=== PATIENT | female | born 1995 | race Caucasian/White ===

== ENCOUNTER 2017-10-03 23:21 | Inpatient (IN) | payer OTHER ==
[2017-10-04] MEDS ORDERED: Misoprostol 25 MCG (1/4 of 100 MCG) Tab VAG PRN (00:28)
[2017-10-04] MEDS ORDERED: Water For Irrigation,Sterile 1,000 ML Container IRR PRN (00:28)
[2017-10-04] MEDS ORDERED: Sodium Chloride 0.9% 10 ML Syringe FLUSH PRN (00:28)
[2017-10-04] MEDS ORDERED: Methylergonovine 0.2 MG/1 ML Amp IM PRN (00:28)
[2017-10-04] MEDS ORDERED: Misoprostol 200 MCG Tab PO PRN (00:28)
[2017-10-04] MEDS ORDERED: Butorphanol 1 MG/ML SDV IVPUSH PRN (00:28)
[2017-10-04] MEDS ORDERED: Nalbuphine 10 MG/1 ML Vial IVPUSH PRN ×3 (00:28→18:22)
[2017-10-04] MEDS ORDERED: Carboprost Tromethamine 250 MCG/1 ML Amp IM PRN (00:28)
[2017-10-04] MEDS ORDERED: Terbutaline 1 MG/ML SDV SUBCUT PRN (00:28)
[2017-10-04] MEDS ORDERED: Sodium Chloride 0.9% 2.5 ML Syringe FLUSH PRN (00:28)
[2017-10-04] MEDS ORDERED: Lidocaine 1% 50 ML MDV INJECT PRN (00:28)
[2017-10-04] MEDS ORDERED: Oxytocin/0.9 % Sodium Chloride 30 UNIT/500 ML BAG IV SCH ×3 (00:30→12:45)
[2017-10-04] MEDS ORDERED: Misoprostol 25 MCG (1/4 of 100 MCG) Tab VAG SCH (00:30)
[2017-10-04] MEDS ORDERED: Lactated Ringers 1,000 ML IV SCH ×2 (00:30→12:45)
[2017-10-04] MEDS: Misoprostol 25 MCG (1/4 of 100 MCG) Tab PO SCH (01:06)
[2017-10-04] MEDS ORDERED: fentaNYL 100 MCG/2 ML SDV ONE (07:52)
[2017-10-04] MEDS ORDERED: Ropivacaine 100 ML ONE (07:53)
--- NOTE | 2017-10-04 09:03 | PCM.LDHP ---
L&D History of Present Illness - General Date of Service: 10/04/17 Admit Problem/Dx: Patient Status Order with Admit Dx/Problem 10/04/17 00:28 Patient Status [ADT] Routine Admission Diagnosis/Problem Admission Diagnosis/Problem Source of Information: Patient History Limitations: Reports: No Limitations - History of Present Illness Pain Score: 2 Improves with: Reports: None Worsens with: Reports: None Associated Symptoms: Reports: N - Related Data Allergies/Adverse Reactions: Allergies Allergy/AdvReac Type Severity Reaction Status Date / Time No Known Allergies Allergy Verified 10/03/17 23:47 Past Medical History Gastrointestinal History: Reports: GERD Genitourinary History: Reports: Renal Calculus, UTI, Recurrent Psychiatric History: Reports: Depression Hematologic History: Reports: Anemia Dermatologic History: Reports: Other (See Below) Other Dermatologic History: Maryellen disease Social & Family History - Family History Cardiac: Reports: Heart Failure OBGYN: Reports: Oncologic: Reports: Lung - Tobacco Use Smoking Status *Q: Never Smoker - Caffeine Use Caffeine Use: Reports: Energy Drinks, Soda - Recreational Drug Use Recreational Drug Use: Yes Recreational Drug Type: Reports: Marijuana/Hashish H&P Review of Systems - Review of Systems: Review Of Systems: See Below General: Reports: No Symptoms HEENT: Reports: No Symptoms Pulmonary: Reports: No Symptoms Cardiovascular: Reports: No Symptoms Gastrointestinal: Reports: No Symptoms Genitourinary: Reports: No Symptoms 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: Reports: No Symptoms Skin: Reports: No Symptoms Psychiatric: Reports: No Symptoms Neurological: Reports: No Symptoms Hematologic/Lymphatic: Reports: No Symptoms Immunologic: Reports: No Symptoms L&D Exam - Exam Exam: See Below - Vital Signs Weight: 86.183 kg - OB Specific Fundal Height In cm: 36 Contraction Intensity: Moderate Movement: Active Heart Tones: Present Presentation: Vertex - Sylvester Score Sylvester Score Cervix Position: Anterior Sylvester Score Consistency: Soft Sylvester Score Effacement: >80% Sylvester Score Dilation: 3-4 cm Sylvester Score 's Station: -2 Sylvester Score Total: 10 - Exam General: Alert, Oriented HEENT: PERRLA, Conjunctiva Clear, EACs Clear, EOMI, Hearing Intact, Mucosa Moist & [place], Nares Patent, Normal Nasal Septum, Posterior Pharynx Clear, TMs Clear Neck: Supple, Trachea Midline Lungs: Clear to Auscultation, Normal Respiratory Effort Cardiovascular: Regular Rate, Regular Rhythm GI/Abdominal Exam: Normal Bowel Sounds, Soft, Non-Tender, No Organomegaly, No Distention, No Abnormal Bruit, No Mass, Pelvis Stable Rectal Exam: Normal Exam, Normal Rectal Tone Genitourinary: Normal external exam, Normal bimanual exam, Normal speculum exam Back Exam: Normal Inspection, Full Range of Motion Extremities: Normal Inspection, Normal Range of Motion, Non-Tender, No Pedal Edema, Normal Capillary Refill Skin: Warm, Dry, Intact Neurological: Cranial Nerves Intact, Reflexes Equal Bilateral Psychiatric: Alert, Normal Affect, Normal Mood - Patient Data Lab Results Last 24 hrs: Laboratory Results - last 24 hr 10/03/17 10/04/17 10/04/17 Range/Units 23:45 00:55 00:55 WBC 11.01 H (4.0-11.0) K/uL RBC 3.87 L (4.30-5.90) M/uL Hgb 11.4 L (12.0-16.0) g/dL Hct 34.2 L (36.0-46.0) % MCV 88.4 (80.0-98.0) fL MCH 29.5 (27.0-32.0) pg MCHC 33.3 (31.0-37.0) g/dL RDW Std Deviation 43.7 (28.0-62.0) fl RDW Coeff of Jamey 14 (11.0-15.0) % Plt Count 199 (150-400) K/uL MPV 12.40 H (7.40-12.00) fL Nucleated RBC % 0.0 /100WBC Nucleated RBCs # 0 K/uL Membrane Rupture POSITIVE Blood Type A POSITIVE Antibody Screen NEGATIVE Result Diagrams: 10/04/17 00:55 Problem List Initiated/Reviewed/Updated: Yes Orders Last 24hrs: Active Orders 24 hr Category Date Time Status Patient Status [ADT] Routine ADT 10/04/17 00:28 Active Bedrest Bathroom Privileges [RC] ASDIRECTED Care 10/04/17 00:28 Active Communication Order [RC] ASDIRECTED Care 10/04/17 00:28 Active Communication Order [RC] ASDIRECTED Care 10/04/17 00:28 Active Communication Order [RC] ASDIRECTED Care 10/04/17 00:28 Active Heart Tones [RC] CONTINUOUS Care 10/04/17 00:28 Active Non Stress Test [RC] PER UNIT ROUTINE Care 10/04/17 00:28 Active May Shower [RC] ASDIRECTED Care 10/04/17 00:28 Active Notify Provider [RC] PRN Care 10/04/17 00:28 Active Notify Provider [RC] PRN Care 10/04/17 00:28 Active Notify Provider [RC] PRN Care 10/04/17 00:28 Active Notify Provider [RC] STAT Care 10/04/17 00:28 Active Oxygen Therapy [RC] ASDIRECTED Care 10/04/17 00:28 Active Up ad Kelly [RC] ASDIRECTED Care 10/04/17 00:28 Active Vaginal Exam [RC] PRN Care 10/04/17 00:28 Active Vaginal Exam [RC] PRN Care 10/04/17 00:28 Active Vital Signs [RC] PER UNIT ROUTINE Care 10/04/17 00:28 Active Vital Signs [RC] PER UNIT ROUTINE Care 10/04/17 00:28 Active Regular Diet [DIET] Diet 10/04/17 Breakfast Active Butorphanol [Stadol] Med 10/04/17 00:28 Active 1 mg IVPUSH Q1H PRN Carboprost Tromethamine [Hemabate DS] Med 10/04/17 00:28 Active 250 mcg IM ASDIRECTED PRN Lactated Ringers [Ringers, Lactated] 1,000 ml Med 10/04/17 00:30 Active IV ASDIRECTED Lidocaine 1% [Xylocaine 1%] Med 10/04/17 00:28 Active 50 ml INJECT .ONCE PRN Methylergonovine [Methergine] Med 10/04/17 00:28 Active 0.2 mg IM ASDIRECTED PRN Misoprostol [Cytotec] Med 10/04/17 00:28 Active 200 mcg PO .ONCE PRN Misoprostol [Cytotec] Med 10/04/17 00:45 Active 25 mcg PO Q4H Misoprostol [Cytotec] Med 10/04/17 00:30 Active 25 mcg VAG .ONCE Misoprostol [Cytotec] Med 10/04/17 00:28 Active 25 mcg VAG Q4H PRN Nalbuphine [Nubain] Med 10/04/17 00:28 Active 10 mg IVPUSH Q1H PRN Oxytocin/0.9 % Sodium Chloride [Oxytocin 30 Unit/500 ML Med 10/04/17 00:30 Active -NS] 30 unit in 500 ml IV TITRATE Oxytocin/0.9 % Sodium Chloride [Oxytocin 30 Unit/500 ML Med 10/04/17 00:30 Active -NS] 30 unit in 500 ml IV TITRATE Sodium Chloride 0.9% [Saline Flush] Med 10/04/17 00:28 Active 10 ml FLUSH ASDIRECTED PRN Sodium Chloride 0.9% [Saline Flush] Med 10/04/17 00:28 Active 2.5 ml FLUSH ASDIRECTED PRN Terbutaline [Brethine] Med 10/04/17 00:28 Active 0.25 mg SUBCUT ASDIRECTED PRN Water For Irrigation,Sterile [Sterile Water for Med 10/04/17 00:28 Active Irrigation] 1,000 ml IRR ASDIRECTED PRN Scalp Electrode [WOMSER] Per Unit Routine Oth 10/04/17 00:28 Ordered Medication Administration Instruction [OM.PC] Q3H Oth 10/04/17 00:30 Ordered Peripheral IV Insertion Adult [OM.PC] Routine Oth 10/04/17 00:28 Ordered Resuscitation Status Routine Resus Stat 10/04/17 00:28 Ordered Medication Orders Butorphanol Tartrate (Stadol) 1 mg IVPUSH Q1H PRN PRN Reason: Pain Last Admin: 10/04/17 05:22 Dose: 1 mg Carboprost Tromethamine (Hemabate Ds) 250 mcg IM ASDIRECTED PRN PRN Reason: Post Hemorrhage Lactated Ringer's (Ringers, Lactated) 1,000 mls @ 150 mls/hr IV ASDIRECTED [facility] Last Admin: 10/04/17 06:16 Dose: 150 mls/hr Oxytocin/Sodium Chloride (Oxytocin 30 Unit/500 Ml-Ns) 30 unit in 500 mls @ 999 mls/hr IV TITRATE [facility] Oxytocin/Sodium Chloride (Oxytocin 30 Unit/500 Ml-Ns) 30 unit in 500 mls @ 2 mls/hr IV TITRATE ARIANA; 2 MUNITS/MIN PRN Reason: Protocol Last Titration: 10/04/17 07:15 Dose: 6 munits/min, 6 mls/hr Titration: 10/04/17 06:46 Dose: 4 munits/min, 4 mls/hr Admin: 10/04/17 06:19 Dose: 2 munits/min, 2 mls/hr Lidocaine HCl (Xylocaine 1%) 50 ml INJECT .ONCE PRN PRN Reason: Laceration repair Methylergonovine Maleate (Methergine) 0.2 mg IM ASDIRECTED PRN PRN Reason: Post Hemorrhage Misoprostol (Cytotec) 200 mcg PO .ONCE PRN PRN Reason: Post Hemorrhage Misoprostol (Cytotec) 25 mcg VAG .ONCE [facility]ANA Last Admin: 10/04/17 01:10 Dose: 25 mcg Misoprostol (Cytotec) 25 mcg VAG Q4H PRN PRN Reason: Cervical Ripening Misoprostol (Cytotec) 25 mcg PO Q4H [facility] Last Admin: 10/04/17 01:06 Dose: 25 mcg Nalbuphine HCl (Nubain) 10 mg IVPUSH Q1H PRN PRN Reason: Pain (severe 7-10) Sodium Chloride (Saline Flush) 10 ml FLUSH ASDIRECTED PRN PRN Reason: Keep Vein Open Sodium Chloride (Saline Flush) 2.5 ml FLUSH ASDIRECTED PRN PRN Reason: Keep Vein Open Sterile Water (Sterile Water For Irrigation) 1,000 ml IRR ASDIRECTED PRN PRN Reason: delivery Terbutaline Sulfate (Brethine) 0.25 mg SUBCUT ASDIRECTED PRN PRN Reason: Tacysystole Assessment/Plan Comment:: IUP 39+ SROM doing well.
--- NOTE | 2017-10-04 09:21 | PCM.PREANE ---
Preanesthetic Assessment - Anesthesia/Transfusion/Family Hx Anesthesia History: No Prior Anesthesia Family History of Anesthesia Reaction: No Transfusion History: No Prior Transfusion(s) - Review of Systems General: No Symptoms Pulmonary: No Symptoms Cardiovascular: No Symptoms Gastrointestinal: No Symptoms Neurological: No Symptoms Other: Reports: None - Physical Assessment NPO Status Date: 10/04/17 NPO Status Time: 00:01 Height: 5 ft 1 in Weight: 190 lb ASA Class: 1 Mental Status: Alert & Oriented x3 Airway Class: Mallampati = 1 Dentition: Reports: Normal Dentition Thyro-Mental Finger Breadths: 3 Mouth Opening Finger Breadths: 3 ROM/Head Extension: Full Lungs: Clear to Auscultation, Normal Respiratory Effort Cardiovascular: Regular Rate, Regular Rhythm - Lab Values: Laboratory Last Values WBC 11.01 K/uL (4.0-11.0) H 10/04/17 00:55 RBC 3.87 M/uL (4.30-5.90) L 10/04/17 00:55 Hgb 11.4 g/dL (12.0-16.0) L 10/04/17 00:55 Hct 34.2 % (36.0-46.0) L 10/04/17 00:55 MCV 88.4 fL (80.0-98.0) 10/04/17 00:55 MCH 29.5 pg (27.0-32.0) 10/04/17 00:55 MCHC 33.3 g/dL (31.0-37.0) 10/04/17 00:55 RDW Std Deviation 43.7 fl (28.0-62.0) 10/04/17 00:55 RDW Coeff of Jamey 14 % (11.0-15.0) 10/04/17 00:55 Plt Count 199 K/uL (150-400) 10/04/17 00:55 MPV 12.40 fL (7.40-12.00) H 10/04/17 00:55 Nucleated RBC % 0.0 /100WBC 10/04/17 00:55 Nucleated RBCs # 0 K/uL 10/04/17 00:55 Membrane Rupture POSITIVE 10/03/17 23:45 Blood Type A POSITIVE 10/04/17 00:55 Antibody Screen NEGATIVE 10/04/17 00:55 - Allergies Allergies/Adverse Reactions: Allergies Allergy/AdvReac Type Severity Reaction Status Date / Time No Known Allergies Allergy Verified 10/03/17 23:47 - Anesthesia Plan Pre-Op Medication Ordered: None - Acknowledgements Anesthesia Type Planned: Epidural Pt an Appropriate Candidate for the Planned Anesthesia: Yes Alternatives and Risks of Anesthesia Discussed w Pt/Guardian: Yes Pt/Guardian Understands and Agrees with Anesthesia Plan: Yes Additional Comments: VSS, reassuring patterns, active labor, good candidate for PCEA PreAnesthesia Questionnaire Gastrointestinal History: Reports: GERD Genitourinary History: Reports: Renal Calculus, UTI, Recurrent Psychiatric History: Reports: Depression Hematologic History: Reports: Anemia Dermatologic History: Reports: Other (See Below) Other Dermatologic History: Maryellen disease - SUBSTANCE USE Smoking Status *Q: Never Smoker Recreational Drug Use History: Yes Recreational Drug Type: Reports: Marijuana/Hashish - CURRENT (IN HOUSE) MEDS Current Meds: Current Medications Butorphanol Tartrate (Stadol) 1 mg IVPUSH Q1H PRN PRN Reason: Pain Last Admin: 10/04/17 05:22 Dose: 1 mg Carboprost Tromethamine (Hemabate Ds) 250 mcg IM ASDIRECTED PRN PRN Reason: Post Hemorrhage Lactated Ringer's (Ringers, Lactated) 1,000 mls @ 150 mls/hr IV ASDIRECTED [facility] Last Admin: 10/04/17 06:16 Dose: 150 mls/hr Oxytocin/Sodium Chloride (Oxytocin 30 Unit/500 Ml-Ns) 30 unit in 500 mls @ 999 mls/hr IV TITRATE [facility] Oxytocin/Sodium Chloride (Oxytocin 30 Unit/500 Ml-Ns) 30 unit in 500 mls @ 2 mls/hr IV TITRATE [facility]; 2 MUNITS/MIN PRN Reason: Protocol Last Titration: 10/04/17 07:15 Dose: 6 munits/min, 6 mls/hr Lidocaine HCl (Xylocaine 1%) 50 ml INJECT .ONCE PRN PRN Reason: Laceration repair Methylergonovine Maleate (Methergine) 0.2 mg IM ASDIRECTED PRN PRN Reason: Post Hemorrhage Misoprostol (Cytotec) 200 mcg PO .ONCE PRN PRN Reason: Post Hemorrhage Misoprostol (Cytotec) 25 mcg VAG .ONCE [facility] Last Admin: 10/04/17 01:10 Dose: 25 mcg Misoprostol (Cytotec) 25 mcg VAG Q4H PRN PRN Reason: Cervical Ripening Misoprostol (Cytotec) 25 mcg PO Q4H [facility] Last Admin: 10/04/17 01:06 Dose: 25 mcg Nalbuphine HCl (Nubain) 10 mg IVPUSH Q1H PRN PRN Reason: Pain (severe 7-10) Sodium Chloride (Saline Flush) 10 ml FLUSH ASDIRECTED PRN PRN Reason: Keep Vein Open Sodium Chloride (Saline Flush) 2.5 ml FLUSH ASDIRECTED PRN PRN Reason: Keep Vein Open Sterile Water (Sterile Water For Irrigation) 1,000 ml IRR ASDIRECTED PRN PRN Reason: delivery Terbutaline Sulfate (Brethine) 0.25 mg SUBCUT ASDIRECTED PRN PRN Reason: Tacysystole Discontinued Medications Fentanyl (Sublimaze) Confirm Administered Dose 100 mcg .ROUTE .STK-MED ONE Stop: 10/04/17 07:53 Ropivacaine (Naropin 0.2%) Confirm Administered Dose 100 mls @ as directed .ROUTE .STK-MED ONE Stop: 10/04/17 07:54
[2017-10-04] MEDS ORDERED: Bupivacaine 0.5% 10 ML SDV ONE (12:34)
[2017-10-04] MEDS ORDERED: Oxytocin 10 Units/1 ML SDV ONE (12:37)
[2017-10-04] MEDS ORDERED: ePHEDrine 50 MG/ML SDV ONE (12:37)
[2017-10-04] MEDS ORDERED: ceFAZolin 1 GM in Premix Bag 1 BAG IV ONE (12:37)
[2017-10-04] MEDS ORDERED: Sodium Chloride 0.9% 20 ML ONE (12:38)
[2017-10-04] MEDS ORDERED: ceFAZolin 1 GM Vial ONE (12:38)
[2017-10-04] MEDS ORDERED: Morphine PF 1 MG/ML Amp ONE (12:44)
[2017-10-04] MEDS ORDERED: Citric Acid/Sodium Citrate Solution 30 ML Cup PO SCH (12:45)
[2017-10-04] MEDS ORDERED: ceFAZolin 2 GM in Premix Bag 1 BAG IV ONE (12:46)
[2017-10-04] MEDS ORDERED: Ondansetron 4 MG/2 ML SDV ONE (13:00)
[2017-10-04] MEDS ORDERED: Octyl 2-Cyanoacrylate 1 Tube ONE (13:27)
[2017-10-04] MEDS ORDERED: Acetaminophen/oxyCODONE 325-5 MG Tab PO PRN (13:31)
[2017-10-04] MEDS ORDERED: diphenhydrAMINE 50 MG/ML SDV IVPUSH PRN ×2 (13:31→13:49)
[2017-10-04] MEDS ORDERED: Ondansetron 4 MG/2 ML SDV IV PRN (13:31)
[2017-10-04] MEDS ORDERED: Lanolin 100% Cream 7 GM Tube TOP PRN (13:31)
[2017-10-04] MEDS ORDERED: Bisacodyl 10 MG Supp RECTAL PRN (13:31)
--- NOTE | 2017-10-04 13:35 | PCM.OPNOTE ---
- General Post-Op/Procedure Note Date of Surgery/Procedure: 10/04/17 Operative Procedure(s): Primary C/Section Pre Op Diagnosis: Iup 39+ intolerance Post-Op Diagnosis: Same Anesthesia Technique: Epidural Primary Surgeon: Ovidio Hanson EBL in mLs: 700 Complications: None Condition: Good
[2017-10-04] MEDS ORDERED: Naloxone 0.4 MG/ML Syringe IVPUSH PRN (13:49)
--- NOTE | 2017-10-04 13:54 | PCM.POSTAN ---
POST ANESTHESIA ASSESSMENT - MENTAL STATUS Mental Status: Alert - RESPIRATORY Respiratory Status: Respiratory Rate WNL, Airway Patent - CARDIOVASCULAR CV Status: Pulse Rate WNL, Blood Pressure Stable - GASTROINTESTINAL GI Status: No Symptoms - POST OP HYDRATION Hydration Status: Adequate & Stable - OBSERVATIONS Free Text/Narrative:: VSS and WNL. Sensory T5/6. No C/O problems No problems noted
[2017-10-04] MEDS: Ketorolac 30 MG/ML SDV IVPUSH SCH ×2 (14:07→20:23)
[2017-10-04] MEDS: Lactated Ringers 1,000 ML IV SCH (16:10)
--- NOTE | 2017-10-04 16:34 | OR ---
SURGEON: Ovidio Hanson MD DATE OF PROCEDURE: PREOPERATIVE DIAGNOSIS: Intrauterine 39+ weeks, intolerance. POSTOPERATIVE DIAGNOSIS: Intrauterine 39+ weeks, intolerance. OPERATION PERFORMED: Primary low transverse section. MARKETING FINANCE MANAGER: OR tech. ANESTHESIA: Epidural, Ian Farah and Nawaf Miller. PROCESSING MANAGER: Dr. Diana. ESTIMATED BLOOD LOSS: 700 mL. COMPLICATIONS: None. INDICATION FOR SURGERY: This patient is 21. She is term 39+ weeks. She is followed in our clinic primarily by our nurse senior [email or web address] developer. She is admitted early in labor with spontaneous rupture of membranes confirmed. At the time of admission, she was dilated to 1 cm vertex. Cytotec was used to induce labor. The patient progressed to 4 cm complete vertex and -2. Pitocin was started to augment labor. The patient had epidural anesthesia for labor analgesia. However, the patient has intolerance to the Pitocin into the contraction. With every contraction, she started to have variable deceleration with late component and with heart rate is category 2, because she is remote from delivery. Decision was made to do a primary low transverse section. PROCEDURE IN DETAIL: The patient was brought to the OR, properly identified, and after adequate level of epidural anesthesia, with a Campbell catheter in the bladder, the patient was prepped and draped in sterile fashion as usual. Low transverse Pfannenstiel skin incision was done. Vandana's fascia and rectus fascia were opened in direction of the incision. The 2 recti muscles were and peritoneal cavity was entered. Bladder flap was raised in the usual manner pushing the bladder away from the lower uterine segment. Low transverse uterine incision was done and extended manually and fetus was in a vertex position, delivered without any problem, handed to the government affairs director, Dr. Diana, who was present at the time of the delivery for resuscitation. Later on, the fetus cried immediately, later on the score reported to be 9 and 9. The weight is not available at this time. Placenta delivered spontaneous complete and intact and repair of the lower uterine segment was done with 0 Vicryl continuous interlocking in 2 layers and then reperitonealization done with 3-0 Vicryl continuous suture. The peritoneal cavity evacuated from all blood and blood clot and closed, and after inspection of the incision, making sure there was no bleeding, no oozing, The peritoneal cavity was closed with 3-0 Vicryl continuous. The rectus fascia was closed with #1 PDS double strand continuous. The Vandana's fascia with 3-0 Vicryl continuous. The skin closed with skin clips, Insorb, and Dermabond. Instrument and sponge count were correct x2. The patient tolerated the procedure well, went to recovery room in stable general condition. TEO / BERNADETTE /[id number]
[2017-10-05] MEDS: Lactated Ringers 1,000 ML IV SCH (00:07)
[2017-10-05] MEDS: Ketorolac 30 MG/ML SDV IVPUSH SCH ×3 (01:47→14:12)
[2017-10-05] MEDS: Misoprostol 25 MCG (1/4 of 100 MCG) Tab PO SCH (05:30)
[2017-10-05] MEDS: Docusate Sodium 100 MG Cap PO SCH ×3 (05:32→21:34)
--- NOTE | 2017-10-05 08:36 | PCM.PNPP ---
- General Info Date of Service: 10/05/17 Admission Dx/Problem (Free Text): Patient Status Order with Admit Dx/Problem 10/04/17 00:28 Patient Status [ADT] Routine Admission Diagnosis/Problem Admission Diagnosis/Problem Functional Status: Reports: Pain Controlled, Tolerating Diet, Ambulating - Review of Systems General: Reports: No Symptoms HEENT: Reports: No Symptoms Pulmonary: Reports: No Symptoms Cardiovascular: Reports: No Symptoms Gastrointestinal: Reports: No Symptoms Genitourinary: Reports: No Symptoms 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: Reports: No Symptoms Skin: Reports: No Symptoms Neurological: Reports: No Symptoms Psychiatric: Reports: No Symptoms - General Info Date of Service: 10/05/17 - Patient Data Vital Signs - Most Recent: Last Vital Signs Temp 36.7 C 10/05/17 04:00 Pulse 86 10/05/17 07:00 Resp 17 10/05/17 07:00 BP 100/60 10/05/17 04:00 Pulse Ox 99 10/05/17 07:00 Weight - Most Recent: 86.183 kg I&O - Last 24 Hours: Intake & Output 10/04/17 10/05/17 10/05/17 22:59 06:59 14:59 Intake Total 240 240 Output Total 120 625 Balance 120 -385 Lab Results - Last 24 Hours: Laboratory Results - last 24 hr 10/05/17 Range/Units 05:30 Hgb 7.5 L (12.0-16.0) g/dL Hct 23.3 L (36.0-46.0) % Med Orders - Current: Current Medications Bisacodyl (Dulcolax) 10 mg RECTAL .ONCE PRN PRN Reason: Constipation Butorphanol Tartrate (Stadol) 1 mg IVPUSH Q1H PRN PRN Reason: Pain Last Admin: 10/04/17 05:22 Dose: 1 mg Carboprost Tromethamine (Hemabate Ds) 250 mcg IM ASDIRECTED PRN PRN Reason: Post Hemorrhage Citric Acid/Sodium Citrate (Bicitra Solution) 30 ml PO .ONCE [facility] Diphenhydramine HCl (Benadryl) 25 mg IVPUSH Q6H PRN PRN Reason: Itching or Nausea Diphenhydramine HCl (Benadryl) 25 mg IVPUSH Q4H PRN PRN Reason: Itching Stop: 10/05/17 13:50 Docusate Sodium (Colace) 100 mg PO BID [facility] Last Admin: 10/05/17 05:32 Dose: Not Given Emollient Ointment (Lansinoh Hpa) 0 gm TOP ASDIRECTED PRN PRN Reason: Sore Nipples Lactated Ringer's (Ringers, Lactated) 1,000 mls @ 150 mls/hr IV ASDIRECTED [facility] Last Admin: 10/04/17 06:16 Dose: 150 mls/hr Oxytocin/Sodium Chloride (Oxytocin 30 Unit/500 Ml-Ns) 30 unit in 500 mls @ 999 mls/hr IV TITRATE ARIANA Oxytocin/Sodium Chloride (Oxytocin 30 Unit/500 Ml-Ns) 30 unit in 500 mls @ 2 mls/hr IV TITRATE [facility]; 2 MUNITS/MIN PRN Reason: Protocol Last Titration: 10/04/17 12:20 Dose: 0 munits/min, 0 mls/hr Oxytocin/Sodium Chloride (Oxytocin 30 Unit/500 Ml-Ns) 30 unit in 500 mls @ 250 mls/hr IV TITRATE [facility] Lactated Ringer's (Ringers, Lactated) 1,000 mls @ 500 mls/hr IV .BOLUS [facility] Last Admin: 10/04/17 12:10 Dose: 500 mls/hr Lactated Ringer's (Ringers, Lactated) 1,000 mls @ 125 mls/hr IV ASDIRECTED [facility] Last Admin: 10/05/17 00:07 Dose: 125 mls/hr Ibuprofen (Motrin) 800 mg PO Q8H PRN PRN Reason: mild pain or fever Ketorolac Tromethamine (Toradol) 30 mg IVPUSH Q6H [facility] Stop: 10/05/17 13:46 Last Admin: 10/05/17 08:17 Dose: 30 mg Lidocaine HCl (Xylocaine 1%) 50 ml INJECT .ONCE PRN PRN Reason: Laceration repair Methylergonovine Maleate (Methergine) 0.2 mg IM ASDIRECTED PRN PRN Reason: Post Hemorrhage Misoprostol (Cytotec) 200 mcg PO .ONCE PRN PRN Reason: Post Hemorrhage Misoprostol (Cytotec) 25 mcg VAG .ONCE [facility] Last Admin: 10/04/17 01:10 Dose: 25 mcg Misoprostol (Cytotec) 25 mcg VAG Q4H PRN PRN Reason: Cervical Ripening Misoprostol (Cytotec) 25 mcg PO Q4H [facility] Last Admin: 10/05/17 05:30 Dose: Not Given Nalbuphine HCl (Nubain) 10 mg IVPUSH Q1H PRN PRN Reason: Pain (severe 7-10) Nalbuphine HCl (Nubain) 5 mg IVPUSH Q3H PRN PRN Reason: Pruritis Stop: 10/05/17 13:50 Nalbuphine HCl (Nubain) 10 mg IVPUSH Q4H PRN PRN Reason: Pain (severe 7-10) Last Admin: 10/04/17 18:30 Dose: 10 mg Naloxone HCl (Narcan) 0.1 mg IVPUSH ONETIME PRN PRN Reason: Respiratory Depression Stop: 10/05/17 13:51 Ondansetron HCl (Zofran) 4 mg IV Q4H PRN PRN Reason: Nausea/Vomiting Oxycodone/Acetaminophen (Percocet 325-5 Mg) 1 tab PO Q4H PRN PRN Reason: Pain (moderate 4-6) Oxycodone/Acetaminophen (Percocet 325-5 Mg) 2 tab PO Q4H PRN PRN Reason: Pain (moderate 4-6) Sodium Chloride (Saline Flush) 10 ml FLUSH ASDIRECTED PRN PRN Reason: Keep Vein Open Sodium Chloride (Saline Flush) 2.5 ml FLUSH ASDIRECTED PRN PRN Reason: Keep Vein Open Sterile Water (Sterile Water For Irrigation) 1,000 ml IRR ASDIRECTED PRN PRN Reason: delivery Terbutaline Sulfate (Brethine) 0.25 mg SUBCUT ASDIRECTED PRN PRN Reason: Tacysystole Discontinued Medications Bupivacaine HCl (Sensorcaine-Mpf 0.5%) Confirm Administered Dose 20 ml .ROUTE .STK-MED ONE Stop: 10/04/17 12:35 Last Admin: 10/05/17 05:31 Dose: Not Given Cefazolin Sodium (Ancef) Confirm Administered Dose 1 gm .ROUTE .STK-MED ONE Stop: 10/04/17 12:39 Ephedrine Sulfate (Ephedrine Sulfate) Confirm Administered Dose 50 mg .ROUTE .STK-MED ONE Stop: 10/04/17 12:38 Fentanyl (Sublimaze) Confirm Administered Dose 100 mcg .ROUTE .STK-MED ONE Stop: 10/04/17 07:53 Last Admin: 10/05/17 05:30 Dose: Not Given Ropivacaine (Naropin 0.2%) Confirm Administered Dose 100 mls @ as directed .ROUTE .STK-MED ONE Stop: 10/04/17 07:54 Last Admin: 10/05/17 05:31 Dose: Not Given Cefazolin Sodium/Dextrose 1 gm (/ Premix) 50 mls @ 100 mls/hr IV ONETIME ONE Stop: 10/04/17 13:06 Last Admin: 10/05/17 05:31 Dose: Not Given Sodium Chloride (Normal Saline) Confirm Administered Dose 20 mls @ as directed .ROUTE .STK-MED ONE Stop: 10/04/17 12:39 Cefazolin Sodium/Dextrose 2 gm (/ Premix) 50 mls @ as directed IV .STK-MED ONE Stop: 10/04/17 12:47 Morphine Sulfate (Duramorph Pf) Confirm Administered Dose 1 mg .ROUTE .STK-MED ONE Stop: 10/04/17 12:45 Octyl Cyanoacrylate (Dermabond Advance) Confirm Administered Dose 1 applic .ROUTE .STK-MED ONE Stop: 10/04/17 13:28 Ondansetron HCl (Zofran) Confirm Administered Dose 4 mg .ROUTE .STK-MED ONE Stop: 10/04/17 13:01 Oxytocin (Pitocin) Confirm Administered Dose 30 unit .ROUTE .STK-MED ONE Stop: 10/04/17 12:38 - Interaction Disposition, : to Nursery Infant Interaction: Holding Support Person: , Mother - Recovery Exam Fundal Tone: Firm Fundal Level: At Umbilicus Fundal Placement: Midline Lochia Amount: Scant Lochia Color: Rubra/Red Perineum Description: Intact, Minimal Bruising/Swelling Episiotomy/Laceration: None Bladder Status: Indwelling Catheter in Place Urinary Elimination: Indwelling Catheter - Exam General: Alert, Oriented, Cooperative, No Acute Distress Lungs: Normal Respiratory Effort GI/Abdominal Exam: Soft, Non-Tender, No Organomegaly, No Distention Extremities: Normal Range of Motion, Non-Tender, No Pedal Edema, Normal Capillary Refill Skin: Warm, Dry, Intact Wound/Incisions: Healing Well, Dressing Dry and Intact Neurological: No New Focal Deficit, Normal Speech, Normal Tone, Other Psy/Mental Status: Alert, Normal Affect, Normal Mood - Problem List & Annotations (1) Supervision of normal IUP (intrauterine ) in primigravida SNOMED Code(s): 08281203, 968390085, 848166280 Code(s): Z34.00 - ENCNTR FOR SUPRVSN OF NORMAL FIRST , UNSP TRIMESTER Status: Acute Priority: High Current Visit: Yes Qualifiers: Trimester: third trimester Qualified Code(s): Z34.03 - Encounter for supervision of normal first , third trimester (2) delivery delivered SNOMED Code(s): 951322737 Code(s): O82 - ENCOUNTER FOR DELIVERY WITHOUT INDICATION Status: Acute Priority: High Current Visit: Yes - Problem List Review Problem List Initiated/Reviewed/Updated: Yes - Assessment Assessment:: Delivered A: VSS, AF, Hgb dropped from 11.4 to 7.5 but asymptomatic, Lochia small, dressing intact. Stable - Plan Plan:: IUP 39+ SROM doing well. Delivery P; continue routine pp plan of care
[2017-10-05] MEDS ORDERED: Acetaminophen/oxyCODONE 325-5 MG Tab PO PRN (08:58)
[2017-10-05] MEDS: Ibuprofen 800 MG Tab PO PRN (21:34)
[2017-10-05] MEDS: Acetaminophen/oxyCODONE 325-5 MG Tab PO PRN (23:50)
[2017-10-06] MEDS: Acetaminophen/oxyCODONE 325-5 MG Tab PO PRN ×2 (05:00→11:11)
--- NOTE | 2017-10-06 07:20 | PCM.DCSUM1 ---
Discharge Summary - Hospital Course Free Text/Narrative:: Discharge home with infant. Follow up in 10 days for incision check and 6 weeks for post . Come sooner if needed. - Discharge Data Discharge Date: 10/06/17 Discharge Disposition: Home, Self-Care 01 Condition: Good - Discharge Diagnosis/Problem(s) (1) Supervision of normal IUP (intrauterine ) in primigravida SNOMED Code(s): 14299857, 245667937, 727885905 ICD Code: Z34.00 - ENCNTR FOR SUPRVSN OF NORMAL FIRST , UNSP TRIMESTER Status: Acute Priority: High Current Visit: Yes Qualifiers: Trimester: third trimester Qualified Code(s): Z34.03 - Encounter for supervision of normal first , third trimester (2) delivery delivered SNOMED Code(s): 247672078 ICD Code: O82 - ENCOUNTER FOR DELIVERY WITHOUT INDICATION Status: Acute Priority: High Current Visit: Yes - Patient Summary/Data Operative Procedure(s) Performed: Primary C/Section - Patient Instructions Diet: Usual Diet as Tolerated Activity: As Tolerated, No Strenuous Activities, Rest and Relax Today Driving: Do Not Drive Showering/Bathing: May Shower Wound/Incision Care: Keep Operative Site/Wound Site Clean and Dry Notify Provider of: Fever, Increased Pain, Swelling and Redness, Drainage, Nausea and/or Vomiting Other/Special Instructions: Discharge home with infant. Follow up in 10 days for incision check and 6 weeks for post . Come sooner if needed. - Discharge Plan Prescriptions/Med Rec: Acetaminophen/oxyCODONE [Percocet 325-5 MG] 2 tab PO Q4H PRN #30 tablet PRN Reason: Pain (Moderate 4-6) Ibuprofen [IJD: Ibuprofen] 800 mg PO Q8H PRN #90 tablet PRN Reason: mild pain or fever Home Medications: Home Meds Acetaminophen/oxyCODONE [Percocet 325-5 MG] 2 tab PO Q4H PRN #30 tablet [Rx] Ibuprofen [IJD: Ibuprofen] 800 mg PO Q8H PRN #90 tablet 10/06/17 [Rx] Referrals: [facility] [Outside] Kat Reynolds CNM [Mid-] - (1 week- October 13 @ 1:30pm w/ Kat Reynolds 6 week- November 10 @ 3:00pm w/ Kat Reynolds ) - General Info Date of Service: 10/06/17 Admission Dx/Problem (Free Text: Patient Status Order with Admit Dx/Problem 10/04/17 00:28 Patient Status [ADT] Routine Admission Diagnosis/Problem Admission Diagnosis/Problem Functional Status: Reports: Pain Controlled, Tolerating Diet, Ambulating, Urinating - Review of Systems General: Reports: No Symptoms HEENT: Reports: No Symptoms Pulmonary: Reports: No Symptoms Cardiovascular: Reports: No Symptoms Gastrointestinal: Reports: No Symptoms Genitourinary: Reports: No Symptoms 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: Reports: No Symptoms Skin: Reports: No Symptoms Neurological: Reports: No Symptoms Psychiatric: Reports: No Symptoms - Patient Data Vitals - Most Recent: Last Vital Signs Temp 36.9 C 10/06/17 04:00 Pulse 92 10/06/17 04:00 Resp 16 10/06/17 04:00 BP 117/57 L 10/06/17 04:00 Pulse Ox 96 10/06/17 04:00 Weight - Most Recent: 86.183 kg Med Orders - Current: Current Medications Bisacodyl (Dulcolax) 10 mg RECTAL .ONCE PRN PRN Reason: Constipation Butorphanol Tartrate (Stadol) 1 mg IVPUSH Q1H PRN PRN Reason: Pain Last Admin: 10/04/17 05:22 Dose: 1 mg Carboprost Tromethamine (Hemabate Ds) 250 mcg IM ASDIRECTED PRN PRN Reason: Post Hemorrhage Citric Acid/Sodium Citrate (Bicitra Solution) 30 ml PO .ONCE ARIANA Diphenhydramine HCl (Benadryl) 25 mg IVPUSH Q6H PRN PRN Reason: Itching or Nausea Docusate Sodium (Colace) 100 mg PO BID ARIANA Last Admin: 10/05/17 21:34 Dose: 100 mg Emollient Ointment (Lansinoh Hpa) 0 gm TOP ASDIRECTED PRN PRN Reason: Sore Nipples Lactated Ringer's (Ringers, Lactated) 1,000 mls @ 150 mls/hr IV ASDIRECTED ARIANA Last Admin: 10/04/17 06:16 Dose: 150 mls/hr Oxytocin/Sodium Chloride (Oxytocin 30 Unit/500 Ml-Ns) 30 unit in 500 mls @ 999 mls/hr IV TITRATE ARIANA Oxytocin/Sodium Chloride (Oxytocin 30 Unit/500 Ml-Ns) 30 unit in 500 mls @ 2 mls/hr IV TITRATE ARIANA; 2 MUNITS/MIN PRN Reason: Protocol Last Titration: 10/04/17 12:20 Dose: 0 munits/min, 0 mls/hr Oxytocin/Sodium Chloride (Oxytocin 30 Unit/500 Ml-Ns) 30 unit in 500 mls @ 250 mls/hr IV TITRATE ARIANA Lactated Ringer's (Ringers, Lactated) 1,000 mls @ 500 mls/hr IV .BOLUS PENDING SALE TO [facility] Last Admin: 10/04/17 12:10 Dose: 500 mls/hr Lactated Ringer's (Ringers, Lactated) 1,000 mls @ 125 mls/hr IV ASDIRECTED PENDING SALE TO [facility] Last Admin: 10/05/17 00:07 Dose: 125 mls/hr Ibuprofen (Motrin) 800 mg PO Q8H PRN PRN Reason: mild pain or fever Last Admin: 10/05/17 21:34 Dose: 800 mg Lidocaine HCl (Xylocaine 1%) 50 ml INJECT .ONCE PRN PRN Reason: Laceration repair Methylergonovine Maleate (Methergine) 0.2 mg IM ASDIRECTED PRN PRN Reason: Post Hemorrhage Misoprostol (Cytotec) 200 mcg PO .ONCE PRN PRN Reason: Post Hemorrhage Misoprostol (Cytotec) 25 mcg VAG .ONCE PENDING SALE TO [facility] Last Admin: 10/04/17 01:10 Dose: 25 mcg Misoprostol (Cytotec) 25 mcg VAG Q4H PRN PRN Reason: Cervical Ripening Misoprostol (Cytotec) 25 mcg PO Q4H PENDING SALE TO [facility] Last Admin: 10/05/17 05:30 Dose: Not Given Nalbuphine HCl (Nubain) 10 mg IVPUSH Q1H PRN PRN Reason: Pain (severe 7-10) Nalbuphine HCl (Nubain) 10 mg IVPUSH Q4H PRN PRN Reason: Pain (severe 7-10) Last Admin: 10/04/17 18:30 Dose: 10 mg Ondansetron HCl (Zofran) 4 mg IV Q4H PRN PRN Reason: Nausea/Vomiting Oxycodone/Acetaminophen (Percocet 325-5 Mg) 1 tab PO Q4H PRN PRN Reason: Pain (moderate 4-6) Last Admin: 10/05/17 19:09 Dose: 1 tab Oxycodone/Acetaminophen (Percocet 325-5 Mg) 2 tab PO Q4H PRN PRN Reason: Pain (moderate 4-6) Last Admin: 10/06/17 05:00 Dose: 2 tab Oxycodone/Acetaminophen (Percocet 325-5 Mg) 1 tab PO Q4H PRN PRN Reason: Breakthrough Pain Last Admin: 10/05/17 09:28 Dose: 1 tab Sodium Chloride (Saline Flush) 10 ml FLUSH ASDIRECTED PRN PRN Reason: Keep Vein Open Sodium Chloride (Saline Flush) 2.5 ml FLUSH ASDIRECTED PRN PRN Reason: Keep Vein Open Sterile Water (Sterile Water For Irrigation) 1,000 ml IRR ASDIRECTED PRN PRN Reason: delivery Terbutaline Sulfate (Brethine) 0.25 mg SUBCUT ASDIRECTED PRN PRN Reason: Tacysystole Discontinued Medications Bupivacaine HCl (Sensorcaine-Mpf 0.5%) Confirm Administered Dose 20 ml .ROUTE .STK-MED ONE Stop: 10/04/17 12:35 Last Admin: 10/05/17 05:31 Dose: Not Given Cefazolin Sodium (Ancef) Confirm Administered Dose 1 gm .ROUTE .STK-MED ONE Stop: 10/04/17 12:39 Diphenhydramine HCl (Benadryl) 25 mg IVPUSH Q4H PRN PRN Reason: Itching Stop: 10/05/17 13:50 Ephedrine Sulfate (Ephedrine Sulfate) Confirm Administered Dose 50 mg .ROUTE .STK-MED ONE Stop: 10/04/17 12:38 Fentanyl (Sublimaze) Confirm Administered Dose 100 mcg .ROUTE .STK-MED ONE Stop: 10/04/17 07:53 Last Admin: 10/05/17 05:30 Dose: Not Given Ropivacaine (Naropin 0.2%) Confirm Administered Dose 100 mls @ as directed .ROUTE .STK-MED ONE Stop: 10/04/17 07:54 Last Admin: 10/05/17 05:31 Dose: Not Given Cefazolin Sodium/Dextrose 1 gm (/ Premix) 50 mls @ 100 mls/hr IV ONETIME ONE Stop: 10/04/17 13:06 Last Admin: 10/05/17 05:31 Dose: Not Given Sodium Chloride (Normal Saline) Confirm Administered Dose 20 mls @ as directed .ROUTE .STK-MED ONE Stop: 10/04/17 12:39 Cefazolin Sodium/Dextrose 2 gm (/ Premix) 50 mls @ as directed IV .STK-MED ONE Stop: 10/04/17 12:47 Ketorolac Tromethamine (Toradol) 30 mg IVPUSH Q6H ARIANA Stop: 10/05/17 13:46 Last Admin: 10/05/17 14:12 Dose: 30 mg Morphine Sulfate (Duramorph Pf) Confirm Administered Dose 1 mg .ROUTE .STK-MED ONE Stop: 10/04/17 12:45 Nalbuphine HCl (Nubain) 5 mg IVPUSH Q3H PRN PRN Reason: Pruritis Stop: 10/05/17 13:50 Naloxone HCl (Narcan) 0.1 mg IVPUSH ONETIME PRN PRN Reason: Respiratory Depression Stop: 10/05/17 13:51 Octyl Cyanoacrylate (Dermabond Advance) Confirm Administered Dose 1 applic .ROUTE .STK-MED ONE Stop: 10/04/17 13:28 Ondansetron HCl (Zofran) Confirm Administered Dose 4 mg .ROUTE .STK-MED ONE Stop: 10/04/17 13:01 Oxytocin (Pitocin) Confirm Administered Dose 30 unit .ROUTE .STK-MED ONE Stop: 10/04/17 12:38 - Exam General: Reports: Alert, Oriented, Cooperative, No Acute Distress Lungs: Reports: Clear to Auscultation, Normal Respiratory Effort Cardiovascular: Reports: Regular Rate, Regular Rhythm GI/Abdominal Exam: Soft, No Mass, Tender (Female) Exam: Vaginal Bleeding Rectal (Female) Exam: Deferred Back Exam: Reports: Full Range of Motion Extremities: Normal Range of Motion, Non-Tender, No Pedal Edema, Normal Capillary Refill Skin: Reports: Warm, Dry, Intact Wound/Incisions: Reports: Healing Well, No Drainage Neurological: Reports: No New Focal Deficit, Normal Speech, Normal Tone Psy/Mental Status: Reports: Alert, Normal Affect, Normal Mood *Q Meaningful Use (DIS) - VTE *Q VTE Criteria *Q: - Stroke *Q Stroke Criteria *Q: - AMI *Q AMI Criteria *Q:
[2017-10-06] MEDS: Ibuprofen 800 MG Tab PO PRN (08:20)
[2017-10-06] MEDS: Docusate Sodium 100 MG Cap PO SCH (08:22)
[2017-10-06] MEDS ORDERED: FLU Vacc QS 2017-18 (36mos UP)/PF 60 MCG/0.5 ML Syringe IM ONE (09:45)
== END 2017-10-06 14:20 | disposition home or self-care (01) | DRG 766 ==
LOC: MW.OBCHECK 23:21 → MW.OB 23:25 → MW.OBCHECK 10-04 00:28 → MW.OB 10-04 00:28 → OBSVTOIN 10-04 12:37 → MW.OB 10-04 16:43
PROVIDERS: ADMIT Obstetrics & Gynecology; ATTEND Obstetrics & Gynecology
PROC: 10D00Z1 Extraction of Products of Conception, Low, Open Approach (ICD-10-PCS; principal; 2017-10-04)
PROC: 3E0P7VZ Introduction of Hormone into Female Reproductive, Via Natural or Artificial Opening (ICD-10-PCS; 2017-10-04)
PROC: 3E033VJ Introduction of Other Hormone into Peripheral Vein, Percutaneous Approach (ICD-10-PCS; 2017-10-04)
DX: O42.02 Full-term premature rupture of membranes, onset of labor within 24 hours of rupture (principal); O76 Abnormality in fetal heart rate and rhythm complicating labor and delivery; Z3A.39 39 weeks gestation of pregnancy; Z37.0 Single live birth
CPT/HCPCS: 01967; 36415; 51702; 59025; 84112; 85014; 85018; 85027; 86850; 86900; 86901; 90686; A9270-GY; G0008; G0010; J0595; J0690; J1885; J2274; J2300; J2405; J2590; J7120

== ENCOUNTER 2020-06-14 05:09 | Inpatient (IN) | payer SELFPAY ==
[2020-06-14] MEDS ORDERED: Sodium Chloride 0.9% 10 ML SDV IV PRN (05:58)
[2020-06-14] MEDS ORDERED: ceFAZolin 2 GM in Premix Bag 1 BAG IV ONE (05:58)
[2020-06-14] MEDS ORDERED: Sodium Chloride 0.9% 10 ML Syringe FLUSH PRN (05:58)
[2020-06-14] MEDS ORDERED: Citric Acid/Sodium Citrate Solution 30 ML Cup PO ONE (05:58)
[2020-06-14] MEDS ORDERED: Sodium Chloride 0.9% 2.5 ML Syringe FLUSH PRN (05:58)
[2020-06-14] MEDS ORDERED: Oxytocin/0.9 % Sodium Chloride 30 UNIT/500 ML BAG IV SCH (06:00)
[2020-06-14] MEDS ORDERED: Lactated Ringers 1,000 ML IV SCH ×2 (06:00→09:15)
--- NOTE | 2020-06-14 07:04 | PCM.PREANE ---
Preanesthetic Assessment - Anesthesia/Transfusion/Family Hx Anesthesia History: Prior Anesthesia Without Reaction Family History of Anesthesia Reaction: No Transfusion History: No Prior Transfusion(s) Intubation History: Unknown - Review of Systems General: No Symptoms Pulmonary: No Symptoms Cardiovascular: No Symptoms Gastrointestinal: No Symptoms Neurological: No Symptoms Other: Reports: None - Physical Assessment Vital Signs: Last Vital Signs Temp 36.1 C 06/14/20 05:58 Pulse 75 06/14/20 05:58 Resp 16 06/14/20 05:58 BP 110/75 06/14/20 05:58 Pulse Ox 97 06/14/20 05:58 Height: 5 ft 1 in Weight: 88.451 kg ASA Class: 2 Mental Status: Alert & Oriented x3 Airway Class: Mallampati = 1 Dentition: Reports: Normal Dentition (retainers upper and lower) Thyro-Mental Finger Breadths: 3 Mouth Opening Finger Breadths: 3 ROM/Head Extension: Full Lungs: Clear to Auscultation, Normal Respiratory Effort Cardiovascular: Regular Rate, Regular Rhythm - Lab Values: Laboratory Last Values WBC 10.31 K/uL (4.0-11.0) 06/14/20 05:30 RBC 3.80 M/uL (4.30-5.90) L 06/14/20 05:30 Hgb 11.2 g/dL (12.0-16.0) L 06/14/20 05:30 Hct 34.2 % (36.0-46.0) L 06/14/20 05:30 MCV 90.0 fL (80.0-98.0) 06/14/20 05:30 MCH 29.5 pg (27.0-32.0) 06/14/20 05:30 MCHC 32.7 g/dL (31.0-37.0) 06/14/20 05:30 RDW Std Deviation 43.9 fl (28.0-62.0) 06/14/20 05:30 RDW Coeff of Jamey 14 % (11.0-15.0) 06/14/20 05:30 Plt Count 212 K/uL (150-400) 06/14/20 05:30 MPV 12.10 fL (7.40-12.00) H 06/14/20 05:30 Nucleated RBC % 0.0 /100WBC 06/14/20 05:30 Nucleated RBCs # 0 K/uL 06/14/20 05:30 Blood Type A POSITIVE 06/14/20 05:30 Antibody Screen NEGATIVE 06/14/20 05:30 - Allergies Allergies/Adverse Reactions: Allergies Allergy/AdvReac Type Severity Reaction Status Date / Time No Known Allergies Allergy Verified 06/08/20 08:49 - Blood Blood Available: No - Anesthesia Plan Pre-Op Medication Ordered: None - Acknowledgements Anesthesia Type Planned: Spinal (general anesthesia back-up plan) Pt an Appropriate Candidate for the Planned Anesthesia: Yes Alternatives and Risks of Anesthesia Discussed w Pt/Guardian: Yes Pt/Guardian Understands and Agrees with Anesthesia Plan: Yes PreAnesthesia Questionnaire - Past Health History Medical/Surgical History: Denies Medical/Surgical History HEENT History: Reports: None Cardiovascular History: Reports: None Respiratory History: Reports: None Gastrointestinal History: Reports: GERD Other Gastrointestinal History: heartburn during Genitourinary History: Reports: Renal Calculus, UTI, Recurrent 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: 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 History: Reports: None Neurological History: Reports: None Psychiatric History: Reports: Anxiety, Depression Endocrine/Metabolic History: Reports: Obesity/BMI 30+ Hematologic History: Reports: Anemia Immunologic History: Reports: None Oncologic (Cancer) History: Reports: None Dermatologic History: Reports: Other (See Below) Other Dermatologic History: Maryellen disease - Infectious Disease History Infectious Disease History: Reports: Chicken Pox - Past Surgical History Head Surgeries/Procedures: Reports: None HEENT Surgical History: Reports: None Cardiovascular Surgical History: Reports: None Respiratory Surgical History: Reports: None GI Surgical History: Reports: None Female Surgical History: Reports: Section Endocrine Surgical History: Reports: None Neurological Surgical History: Reports: None 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 Surgical History: Reports: None Oncologic Surgical History: Reports: None - SUBSTANCE USE Smoking Status *Q: Former Smoker Tobacco Use Within Last Twelve Months: Vaping Second Hand Smoke Exposure: No Days Per Week of Alcohol Use: 1 Number of Drinks Per Day: 3 Total Drinks Per Week: 3 Date of Last Drink: 09/07/19 Recreational Drug Use History: No - HOME MEDS Home Medications: Home Meds hydrOXYzine HCL [hydrOXYzine] 25 mg PO ASDIRECTED PRN 06/08/20 [History] - CURRENT (IN HOUSE) MEDS Current Meds: Current Medications Oxytocin/Sodium Chloride (Oxytocin 30 Unit/500 Ml-Ns) 30 unit in 500 mls @ 250 mls/hr IV TITRATE ARIANA Lactated Ringer's (Ringers, Lactated) 1,000 mls @ 500 mls/hr IV BOLUS ARIANA Sodium Chloride (Saline Flush) 10 ml FLUSH ASDIRECTED PRN PRN Reason: Keep Vein Open Sodium Chloride (Saline Flush) 2.5 ml FLUSH ASDIRECTED PRN PRN Reason: Keep Vein Open Sodium Chloride (Normal Saline) 10 ml IV ASDIRECTED PRN PRN Reason: IV Use Discontinued Medications Citric Acid/Sodium Citrate (Bicitra Solution) 30 ml PO ONETIME ONE Stop: 06/14/20 05:59 Cefazolin Sodium/Dextrose 2 gm (/ Premix) 50 mls @ 100 mls/hr IV ONETIME ONE Stop: 06/14/20 06:27
[2020-06-14] MEDS ORDERED: Octyl 2-Cyanoacrylate 1 Tube ONE ×2 (07:43→09:19)
[2020-06-14] MEDS ORDERED: Morphine PF 10 MG/10 ML SDV ONE (08:11)
[2020-06-14] MEDS ORDERED: Ondansetron 4 MG/2 ML SDV ONE (08:11)
[2020-06-14] MEDS ORDERED: Oxytocin 10 Units/1 ML SDV ONE ×2 (08:11→08:57)
--- NOTE | 2020-06-14 08:21 | PCM.LDHP ---
L&D History of Present Illness - General Date of Service: 06/14/20 Admit Problem/Dx: Patient Status Order with Admit Dx/Problem 06/14/20 05:58 Patient Status [ADT] Routine Admission Diagnosis/Problem Admission Diagnosis/Problem Source of Information: Patient History Limitations: Reports: No Limitations - History of Present Illness Improves with: Reports: None Worsens with: Reports: None Associated Symptoms: Reports: N - Related Data Allergies/Adverse Reactions: Allergies Allergy/AdvReac Type Severity Reaction Status Date / Time No Known Allergies Allergy Verified 06/08/20 08:49 Home Medications: Home Meds hydrOXYzine HCL [hydrOXYzine] 25 mg PO ASDIRECTED PRN 06/08/20 [History] Past Medical History - Past Health History Medical/Surgical History: Denies Medical/Surgical History HEENT History: Reports: None Cardiovascular History: Reports: None Respiratory History: Reports: None Gastrointestinal History: Reports: GERD Other Gastrointestinal History: heartburn during Genitourinary History: Reports: Renal Calculus, UTI, Recurrent 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: 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 History: Reports: None Neurological History: Reports: None Psychiatric History: Reports: Anxiety, Depression Endocrine/Metabolic History: Reports: Obesity/BMI 30+ Hematologic History: Reports: Anemia Immunologic History: Reports: None Oncologic (Cancer) History: Reports: None Dermatologic History: Reports: Other (See Below) Other Dermatologic History: Maryellen disease - Infectious Disease History Infectious Disease History: Reports: Chicken Pox - Past Surgical History Head Surgeries/Procedures: Reports: None HEENT Surgical History: Reports: None Cardiovascular Surgical History: Reports: None Respiratory Surgical History: Reports: None GI Surgical History: Reports: None Female Surgical History: Reports: Section Endocrine Surgical History: Reports: None Neurological Surgical History: Reports: None 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 Surgical History: Reports: None Oncologic Surgical History: Reports: None Social & Family History - Family History Family Medical History: Noncontributory Cardiac: Reports: Heart Failure OBGYN: Reports: Oncologic: Reports: Lung - Tobacco Use Smoking Status *Q: Former Smoker Years of Tobacco use: 2 Used Tobacco, but Quit: No Month/Year Tobacco Last Used: quit vaping 8 months ago Second Hand Smoke Exposure: No - Caffeine Use Caffeine Use: Reports: Coffee, Energy Drinks - Alcohol Use Days Per Week of Alcohol Use: 1 Number of Drinks Per Day: 3 Total Drinks Per Week: 3 Date of Last Drink: 09/07/19 - Recreational Drug Use Recreational Drug Use: No Drug Use in Last 12 Months: No H&P Review of Systems - Review of Systems: Review Of Systems: See Below General: Reports: No Symptoms HEENT: Reports: No Symptoms Pulmonary: Reports: No Symptoms Cardiovascular: Reports: No Symptoms Gastrointestinal: Reports: No Symptoms Genitourinary: Reports: No Symptoms 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: Reports: No Symptoms Skin: Reports: No Symptoms Psychiatric: Reports: No Symptoms Neurological: Reports: No Symptoms Hematologic/Lymphatic: Reports: No Symptoms Immunologic: Reports: No Symptoms L&D Exam - Exam Exam: See Below - Vital Signs Vital Signs: Last Vital Signs Temp 36.1 C 06/14/20 05:58 Pulse 75 06/14/20 05:58 Resp 16 06/14/20 05:58 BP 110/75 06/14/20 05:58 Pulse Ox 97 06/14/20 05:58 Weight: 88.451 kg - OB Specific Contraction Intensity: Mild Movement: Active Heart Tones: Present Presentation: Vertex - Sylvester Score Sylvester Score Cervix Position: Posterior Sylvester Score Consistency: Firm Sylvester Score Effacement: 31-50% Sylvester Score Dilation: Closed Sylvester Score 's Station: -3 Sylvester Score Total: 1 - Exam General: Alert, Oriented HEENT: PERRLA, Conjunctiva Clear, EACs Clear, EOMI, Hearing Intact, Mucosa Moist & [place], Nares Patent, Normal Nasal Septum, Posterior Pharynx Clear, TMs Clear Neck: Supple, Trachea Midline Lungs: Clear to Auscultation, Normal Respiratory Effort Cardiovascular: Regular Rate, Regular Rhythm GI/Abdominal Exam: Normal Bowel Sounds, Soft, Non-Tender, No Organomegaly, No Distention, No Abnormal Bruit, No Mass, Pelvis Stable Rectal Exam: Normal Exam, Normal Rectal Tone Genitourinary: Normal external exam, Normal bimanual exam, Normal speculum exam Back Exam: Normal Inspection, Full Range of Motion Extremities: Normal Inspection, Normal Range of Motion, Non-Tender, No Pedal Edema, Normal Capillary Refill Skin: Warm, Dry, Intact Neurological: Cranial Nerves Intact, Reflexes Equal Bilateral Psychiatric: Alert, Normal Affect, Normal Mood - Patient Data Lab Results Last 24 hrs: Laboratory Results - last 24 hr 06/14/20 06/14/20 Range/Units 05:30 05:30 WBC 10.31 (4.0-11.0) K/uL RBC 3.80 L (4.30-5.90) M/uL Hgb 11.2 L (12.0-16.0) g/dL Hct 34.2 L (36.0-46.0) % MCV 90.0 (80.0-98.0) fL MCH 29.5 (27.0-32.0) pg MCHC 32.7 (31.0-37.0) g/dL RDW Std Deviation 43.9 (28.0-62.0) fl RDW Coeff of Jamey 14 (11.0-15.0) % Plt Count 212 (150-400) K/uL MPV 12.10 H (7.40-12.00) fL Nucleated RBC % 0.0 /100WBC Nucleated RBCs # 0 K/uL Blood Type A POSITIVE Antibody Screen NEGATIVE Result Diagrams: 06/14/20 05:30 Problem List Initiated/Reviewed/Updated: Yes Orders Last 24hrs: Active Orders 24 hr Category Date Time Status Patient Status [ADT] Routine ADT 06/14/20 05:58 Active Non Stress Test [RC] PER UNIT ROUTINE Care 06/14/20 05:58 Active Notify Provider Vital Signs [RC] PRN Care 06/14/20 06:02 Active Procedure Site Prep Instruct [RC] ASDIRECTED Care 06/14/20 05:58 Active Up ad Kelly [RC] ASDIRECTED Care 06/14/20 05:58 Active Verify Patient Consent Obtain [RC] ASDIRECTED Care 06/14/20 05:58 Active Vital Signs [RC] PER UNIT ROUTINE Care 06/14/20 05:58 Active RPR (SYPHILIS SERO) W/ RFLX [REF] Routine Lab 06/14/20 05:58 Ordered Lactated Ringers [Ringers, Lactated] 1,000 ml Med 06/14/20 06:00 Active IV BOLUS Oxytocin/0.9 % Sodium Chloride [Oxytocin 30 Unit/500 ML Med 06/14/20 06:00 Active -NS] 30 unit in 500 ml IV TITRATE Sodium Chloride 0.9% [Normal Saline] Med 06/14/20 05:58 Active 10 ml IV ASDIRECTED PRN Sodium Chloride 0.9% [Saline Flush] Med 06/14/20 05:58 Active 10 ml FLUSH ASDIRECTED PRN Sodium Chloride 0.9% [Saline Flush] Med 06/14/20 05:58 Active 2.5 ml FLUSH ASDIRECTED PRN Peripheral IV Insertion Adult [OM.PC] Routine Oth 06/14/20 05:58 Ordered Schedule Procedure [COMM] Per Unit Routine Oth 06/14/20 05:58 Ordered Resuscitation Status Routine Resus Stat 06/14/20 05:58 Ordered Medication Orders Oxytocin/Sodium Chloride (Oxytocin 30 Unit/500 Ml-Ns) 30 unit in 500 mls @ 250 mls/hr IV TITRATE ARIANA Lactated Ringer's (Ringers, Lactated) 1,000 mls @ 500 mls/hr IV BOLUS ARIANA Sodium Chloride (Saline Flush) 10 ml FLUSH ASDIRECTED PRN PRN Reason: Keep Vein Open Sodium Chloride (Saline Flush) 2.5 ml FLUSH ASDIRECTED PRN PRN Reason: Keep Vein Open Sodium Chloride (Normal Saline) 10 ml IV ASDIRECTED PRN PRN Reason: IV Use Assessment/Plan Comment:: IUP 39 wks admitted for elective repeat C/section.
[2020-06-14] MEDS ORDERED: Ketorolac 30 MG/ML SDV ONE (08:39)
[2020-06-14] MEDS ORDERED: Glycopyrrolate 0.2 MG/ML SDV ONE (08:58)
[2020-06-14] MEDS ORDERED: Ondansetron 4 MG/2 ML SDV IVPUSH PRN (09:06)
[2020-06-14] MEDS ORDERED: Misoprostol 200 MCG Tab RECTAL PRN (09:06)
[2020-06-14] MEDS ORDERED: Methylergonovine 0.2 MG/1 ML Amp IM PRN (09:06)
[2020-06-14] MEDS ORDERED: Bisacodyl 10 MG Supp RECTAL PRN (09:06)
[2020-06-14] MEDS ORDERED: diphenhydrAMINE 50 MG/ML SDV IVPUSH PRN (09:06)
[2020-06-14] MEDS ORDERED: Tranexamic Acid 1,000 MG in Sodium Chloride 0.9% 100 ML IV PRN (09:06)
[2020-06-14] MEDS ORDERED: Oxytocin 10 Units/1 ML SDV IM PRN (09:06)
--- NOTE | 2020-06-14 09:11 | PCM.OPNOTE ---
- General Post-Op/Procedure Note Date of Surgery/Procedure: 06/14/20 Operative Procedure(s): Repeat C/section. Post-Op Diagnosis: Same Anesthesia Technique: Spinal Primary Surgeon: Ovidio Hanson [place]: Chiquis Harvey in mLs: 800 Complications: None Condition: Good
--- NOTE | 2020-06-14 10:15 | PCM.POSTAN ---
POST ANESTHESIA ASSESSMENT - MENTAL STATUS Mental Status: Alert, Oriented - VITAL SIGNS Vital Signs: Last Vital Signs Temp 36.1 C 06/14/20 05:58 Pulse 75 06/14/20 05:58 Resp 16 06/14/20 05:58 BP 110/75 06/14/20 05:58 Pulse Ox 97 06/14/20 05:58 - RESPIRATORY Respiratory Status: Respiratory Rate WNL, Airway Patent, O2 Saturation Stable - CARDIOVASCULAR CV Status: Pulse Rate WNL, Blood Pressure Stable - GASTROINTESTINAL GI Status: No Symptoms - PAIN Pain Score: 0 - POST OP HYDRATION Hydration Status: Adequate & Stable - OBSERVATIONS Free Text/Narrative:: No anesthesia complications or concerns noted at this time.
[2020-06-14] MEDS: Ketorolac 30 MG/ML SDV IVPUSH SCH ×2 (15:06→21:34)
[2020-06-14] MEDS: Docusate Sodium 100 MG Cap PO SCH (21:35)
[2020-06-15] MEDS: Ketorolac 30 MG/ML SDV IVPUSH SCH ×3 (01:43→09:08)
[2020-06-15] MEDS: Docusate Sodium 100 MG Cap PO SCH ×2 (09:08→22:03)
--- NOTE | 2020-06-15 09:36 | PCM.PNPP ---
- General Info Date of Service: 06/15/20 Functional Status: Reports: Pain Controlled - Review of Systems General: Reports: No Symptoms HEENT: Reports: No Symptoms Pulmonary: Reports: No Symptoms Cardiovascular: Reports: No Symptoms Gastrointestinal: Reports: No Symptoms Genitourinary: Reports: No Symptoms 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: Reports: No Symptoms Skin: Reports: No Symptoms Neurological: Reports: No Symptoms Psychiatric: Reports: No Symptoms - General Info Date of Service: 06/15/20 - Patient Data Vital Signs - Most Recent: Last Vital Signs Temp 36.4 C 06/15/20 09:19 Pulse 77 06/15/20 09:19 Resp 16 06/15/20 06:00 BP 108/56 L 06/15/20 09:19 Pulse Ox 96 06/15/20 09:19 Weight - Most Recent: 88.451 kg I&O - Last 24 Hours: Intake & Output 06/14/20 06/15/20 06/15/20 22:59 06:59 14:59 Intake Total 2500 Output Total 3400 1550 Balance -900 -1550 Lab Results - Last 24 Hours: Laboratory Results - last 24 hr 06/15/20 Range/Units 05:18 Hgb 9.1 L (12.0-16.0) g/dL Hct 28.3 L (36.0-46.0) % Med Orders - Current: Current Medications Bisacodyl (Dulcolax) 10 mg RECTAL ONETIME PRN PRN Reason: Constipation Diphenhydramine HCl (Benadryl) 25 mg IVPUSH Q6H PRN PRN Reason: Itching or Nausea Last Admin: 06/14/20 09:55 Dose: 25 mg Documented by: Docusate Sodium (Colace) 100 mg PO BID ARIANA Last Admin: 06/15/20 09:08 Dose: 100 mg Documented by: Emollient Ointment (Lansinoh Hpa) 0 gm TOP ASDIRECTED PRN PRN Reason: Sore Nipples Oxytocin/Sodium Chloride (Oxytocin 30 Unit/500 Ml-Ns) 30 unit in 500 mls @ 250 mls/hr IV TITRATE ARIANA Lactated Ringer's (Ringers, Lactated) 1,000 mls @ 500 mls/hr IV BOLUS ARIANA Lactated Ringer's (Ringers, Lactated) 1,000 mls @ 125 mls/hr IV ASDIRECTED ARIANA Last Admin: 06/14/20 11:50 Dose: 999 mls/hr Documented by: Tranexamic Acid 1,000 mg/ (Sodium Chloride) 110 mls @ 660 mls/hr IV ONETIME PRN PRN Reason: Bleeding Ibuprofen (Motrin) 800 mg PO Q8H PRN PRN Reason: mild pain or fever Methylergonovine Maleate (Methergine) 0.2 mg IM ONETIME PRN PRN Reason: Excessive Vaginal Bleeding Misoprostol (Cytotec) 1,000 mcg RECTAL ONETIME PRN PRN Reason: excessive bleeding Ondansetron HCl (Zofran) 4 mg IVPUSH Q4H PRN PRN Reason: Nausea/Vomiting Oxycodone/Acetaminophen (Percocet 325-5 Mg) 1 tab PO Q4H PRN PRN Reason: Pain (moderate 4-6) Oxycodone/Acetaminophen (Percocet 325-5 Mg) 2 tab PO Q4H PRN PRN Reason: Pain (moderate 4-6) Oxytocin (Pitocin) 10 unit IM ASDIRECTED PRN PRN Reason: Excessive Vaginal Bleeding Sodium Chloride (Saline Flush) 10 ml FLUSH ASDIRECTED PRN PRN Reason: Keep Vein Open Sodium Chloride (Saline Flush) 2.5 ml FLUSH ASDIRECTED PRN PRN Reason: Keep Vein Open Sodium Chloride (Normal Saline) 10 ml IV ASDIRECTED PRN PRN Reason: IV Use Discontinued Medications Citric Acid/Sodium Citrate (Bicitra Solution) 30 ml PO ONETIME ONE Stop: 06/14/20 05:59 Last Admin: 06/15/20 01:42 Dose: Not Given Documented by: Ephedrine Sulfate (Emerphed) Confirm Administered Dose 50 mg .ROUTE .STK-MED ONE Stop: 06/14/20 11:58 Last Admin: 06/15/20 01:43 Dose: Not Given Documented by: Glycopyrrolate (Robinul) Confirm Administered Dose 0.2 mg .ROUTE .STK-MED ONE Stop: 06/14/20 08:59 Cefazolin Sodium/Dextrose 2 gm (/ Premix) 50 mls @ 100 mls/hr IV ONETIME ONE Stop: 06/14/20 06:27 Last Admin: 06/15/20 01:39 Dose: Not Given Documented by: Ketorolac Tromethamine (Toradol) Confirm Administered Dose 30 mg .ROUTE .STK-MED ONE Stop: 06/14/20 08:40 Ketorolac Tromethamine (Toradol) 30 mg IVPUSH Q6H ARIANA Stop: 06/15/20 09:16 Last Admin: 06/15/20 09:08 Dose: 30 mg Documented by: Morphine Sulfate (Duramorph Pf) Confirm Administered Dose 10 mg .ROUTE .STK-MED ONE Stop: 06/14/20 08:12 Octyl Cyanoacrylate (Dermabond Advance) Confirm Administered Dose 1 applic .ROUTE .STK-MED ONE Stop: 06/14/20 07:44 Last Admin: 06/15/20 01:42 Dose: Not Given Documented by: Octyl Cyanoacrylate (Dermabond Advance) Confirm Administered Dose 1 applic .ROUTE .STK-MED ONE Stop: 06/14/20 09:20 Last Admin: 06/15/20 01:42 Dose: Not Given Documented by: Ondansetron HCl (Zofran) Confirm Administered Dose 4 mg .ROUTE .STK-MED ONE Stop: 06/14/20 08:12 Oxytocin (Pitocin) Confirm Administered Dose 20 unit .ROUTE .STK-MED ONE Stop: 06/14/20 08:12 Oxytocin (Pitocin) Confirm Administered Dose 20 unit .ROUTE .STK-MED ONE Stop: 06/14/20 08:58 - Infant Interaction Infant Disposition, : [place] in Room with Family Support Person: - Recovery Exam Fundal Tone: Firm Fundal Level: 1 Fingerbreadths Below Umbilicus Fundal Placement: Midline Lochia Amount: Scant Lochia Color: Rubra/Red Perineum Description: Intact, Minimal Bruising/Swelling Bladder Status: Indwelling Catheter in Place Urinary Elimination: Indwelling Catheter - Exam General: Alert, Oriented HEENT: Pupils Equal Neck: Supple Lungs: Clear to Auscultation, Normal Respiratory Effort Cardiovascular: Regular Rate, Regular Rhythm GI/Abdominal Exam: Normal Bowel Sounds, Soft, Non-Tender, No Organomegaly, No Distention, No Abnormal Bruit, No Mass, Pelvis Stable Extremities: Normal Inspection, Normal Range of Motion, Non-Tender, No Pedal Edema, Normal Capillary Refill Skin: Warm, Dry, Intact Wound/Incisions: Healing Well Neurological: No New Focal Deficit Psy/Mental Status: Alert, Normal Affect, Normal Mood - Problem List Review Problem List Initiated/Reviewed/Updated: Yes - My Orders Last 24 Hours: My Active Orders 06/14/20 09:06 Patient Status [ADT] Routine Ambulate [RC] PER UNIT ROUTINE Communication Order [RC] PER UNIT ROUTINE Communication Order [RC] PER UNIT ROUTINE Communication Order [RC] Per Unit Routine May Shower [RC] ASDIRECTED RT Incentive Spirometry [RC] Q2HWA Vital Signs [RC] PER UNIT ROUTINE Acetaminophen/oxyCODONE [Percocet 325-5 MG] 1 tab PO Q4H PRN Acetaminophen/oxyCODONE [Percocet 325-5 MG] 2 tab PO Q4H PRN Ibuprofen [Motrin] 800 mg PO Q8H PRN Lanolin [Lansinoh HPA] See Dose Instructions TOP ASDIRECTED PRN Methylergonovine [Methergine] 0.2 mg IM ONETIME PRN Ondansetron [Zofran] 4 mg IVPUSH Q4H PRN Oxytocin [Pitocin] 10 unit IM ASDIRECTED PRN Tranexamic Acid [Cyklokapron] 1,000 mg Sodium Chloride 0.9% [Normal Saline] 100 ml IV ONETIME bisacodyL [Dulcolax] 10 mg RECTAL ONETIME PRN diphenhydrAMINE [Benadryl] 25 mg IVPUSH Q6H PRN miSOPROStoL [Cytotec] 1,000 mcg RECTAL ONETIME PRN Assess Lochia [WOMSER] Per Unit Routine Assess Uterine Involution [WOMSER] Per Unit Routine Breast Pump [WOMSER] Per Unit Routine Peripheral IV Discontinue [OM.PC] Routine Sequential Compression Device [OM.PC] Per Unit Routine 06/14/20 09:07 Antiembolic Devices [RC] PER UNIT ROUTINE 06/14/20 09:15 Lactated Ringers [Ringers, Lactated] 1,000 ml IV ASDIRECTED 06/14/20 Dinner Regular Diet [DIET] 06/14/20 21:00 Docusate Sodium [Colace] 100 mg PO BID - Assessment Assessment:: Status post section postoperative day #1 the patient is doing well incision is clean dry Campbell catheter is DC'd the patient is voiding without any problem on regular diet she is ambulatory. We are planning to send her home in a.m. - Plan Plan:: IUP 39 wks admitted for elective repeat C/section.
--- NOTE | 2020-06-15 09:37 | PCM48HPAN ---
Post Anesthesia Note - EVALUATION WITHIN 48HRS OF ANESTHETIC Vital Signs in Normal Range: Yes Patient Participated in Evaluation: Yes Respiratory Function Stable: Yes Airway Patent: Yes Cardiovascular Function Stable: Yes Hydration Status Stable: Yes Pain Control Satisfactory: Yes Nausea and Vomiting Control Satisfactory: Yes Mental Status Recovered: Yes Vital Signs: Last Vital Signs Temp 36.4 C 06/15/20 09:19 Pulse 77 06/15/20 09:19 Resp 16 06/15/20 06:00 BP 108/56 L 06/15/20 09:19 Pulse Ox 96 06/15/20 09:19 - COMMENTS/OBSERVATIONS Free Text/Narrative:: No anesthesia problems
--- NOTE | 2020-06-15 10:46 | OR ---
SURGEON: Ovidio Hanson MD DATE OF PROCEDURE: 06/14/2020 PREOPERATIVE DIAGNOSES: Intrauterine at 39 weeks, previous section, admitted for elective repeat section. POSTOPERATIVE DIAGNOSES: Intrauterine at 39 weeks, previous section, admitted for elective repeat section. OPERATION PERFORMED: Low transverse section. PRIMARY SURGEON: Ovidio Hanson MD ASSISTANTS: Dr. Neal and Ms. Chiquis Harvey. ANESTHESIA: Spinal, Joelle Kirk and Dr. Sharma. ESTIMATED BLOOD LOSS: 800 mL. COMPLICATIONS: None. FINDINGS: Normal uterus, tubes, and ovary. Male fetus. scores reported to be 8 and 9. Weight is not available at the time of the dictation. INDICATIONS FOR SURGERY: She is 24. She had previous section. She is admitted for elective repeat section. DESCRIPTION OF PROCEDURE: The patient was brought to the OR, properly identified. After adequate level of spinal anesthesia with a Campbell catheter in the bladder, the patient was prepped and draped in sterile fashion as usual. Low transverse Pfannenstiel skin incision through the old scar was done. Vandana's fascia and rectus fascia were opened in direction of the incision. Two recti muscles were . Peritoneal cavity was entered and then bladder flap was raised in the usual manner and pushing the bladder away from the lower uterine segment. Low transverse uterine incision was done and extended manually with the hand. Fetus was in a vertex position, delivered without any problem, cried immediately. scores reported to be 8 and 9. The placenta delivered spontaneous, complete, and intact and repair of the lower uterine segment was done with 2-0 Vicryl continuous interlocking in two layers. Inspection of the lower uterine segment showed no oozing, no bleeding. Then, the peritoneal cavity evacuated completely from all blood and blood clot and closed with 3-0 Vicryl continuous. The rectus fascia was closed with #1 PDS double strand continuous, Vandana's fascia with 3-0 Vicryl continuous, and the skin closed with 3-0 on a Devyn needle in a subcuticular fashion and Dermabond. Instrument and sponge count was correct. The patient tolerated the procedure well, went to recovery room in stable general condition. TEO / MODL /[id number]
[2020-06-15] MEDS: Acetaminophen/oxyCODONE 325-5 MG Tab PO PRN ×3 (13:08→23:54)
[2020-06-15] MEDS: Lanolin 100% Cream 7 GM Tube TOP PRN (18:23)
[2020-06-15] MEDS: Ibuprofen 800 MG Tab PO PRN (22:03)
[2020-06-16] MEDS: Ibuprofen 800 MG Tab PO PRN ×2 (05:38→13:56)
[2020-06-16] MEDS: Acetaminophen/oxyCODONE 325-5 MG Tab PO PRN ×3 (05:38→13:55)
--- NOTE | 2020-06-16 07:57 | PCM.DCSUM1 ---
Discharge Summary - Hospital Course Free Text/Narrative:: Discharge home with baby. Follow up in the clinic in one week with Dr. Hanson for incision check. Follow up in the clinic in two weeks with Erika to assess anxiety/depression. Follow up in six weeks for routine visit. Diagnosis: Stroke: No Modified [place] Scale: No Symptoms at All Modified Dereck Scale Score: 0 - Discharge Data Discharge Date: 06/16/20 Discharge Disposition: Home, Self-Care 01 Condition: Good - Referral to Home Health Primary Care Physician: PCP None - Patient Summary/Data Operative Procedure(s) Performed: Repeat C/section. - Patient Instructions Diet: Regular Diet as Tolerated, Drink 8-10+ Glasses/Day Activity: As Tolerated, No Strenuous Activities, Rest and Relax Today Driving: Do Not Drive Showering/Bathing: May Shower Wound/Incision Care: Keep Operative Site/Wound Site Clean and Dry - Discharge Plan *PRESCRIPTION DRUG MONITORING PROGRAM REVIEWED*: Not Applicable *COPY OF PRESCRIPTION DRUG MONITORING REPORT IN PATIENT DEBRA: Not Applicable Prescriptions/Med Rec: Ibuprofen [Motrin] 800 mg PO Q8H PRN #90 tablet PRN Reason: mild pain or fever Acetaminophen/oxyCODONE [Percocet 325-5 MG] 1 - 2 tab PO Q6HR PRN #40 tablet PRN Reason: Pain (Moderate 4-6) Home Medications: Home Meds hydrOXYzine HCL [hydrOXYzine] 25 mg PO ASDIRECTED PRN 06/08/20 [History] Acetaminophen/oxyCODONE [Percocet 325-5 MG] 1 - 2 tab PO Q6HR PRN #40 tablet 06/16/20 [Rx] Ibuprofen [Motrin] 800 mg PO Q8H PRN #90 tablet 06/16/20 [Rx] Sertraline [Zoloft] 1 tab PO DAILY #7 tablet 06/16/20 [Rx] Sertraline [Zoloft] 50 mg PO DAILY #30 tab 06/16/20 [Rx] Oxygen Therapy Mode: Room Air Referrals: [facility] [Outside] Ovidio Hanson MD [Physician] - (1 week- June 19@ 3:00pm w/ Dr. Hanson week- July 25@ 2:45pm w/ Dr. Hanson ) - Discharge Summary/Plan Comment DC Time >30 min.: Yes - General Info Date of Service: 06/16/20 Admission Dx/Problem (Free Text: Patient Status Order with Admit Dx/Problem 06/14/20 05:58 Patient Status [ADT] Routine Admission Diagnosis/Problem Admission Diagnosis/Problem Functional Status: Reports: Pain Controlled - Review of Systems General: Reports: No Symptoms HEENT: Reports: No Symptoms Pulmonary: Reports: No Symptoms Cardiovascular: Reports: No Symptoms Gastrointestinal: Reports: No Symptoms Genitourinary: Reports: No Symptoms 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: Reports: No Symptoms Skin: Reports: No Symptoms Neurological: Reports: No Symptoms Psychiatric: Reports: No Symptoms - Patient Data Vitals - Most Recent: Last Vital Signs Temp 97.5 F 06/15/20 19:40 Pulse 76 06/15/20 19:40 Resp 13 06/15/20 19:40 BP 98/70 06/15/20 19:40 Pulse Ox 99 06/15/20 19:40 Weight - Most Recent: 195 lb Lab Results - Last 24 hrs: Laboratory Results - last 24 hr 06/14/20 Range/Units 05:30 RPR Non-Reac (Non-Reac) Med Orders - Current: Current Medications Bisacodyl (Dulcolax) 10 mg RECTAL ONETIME PRN PRN Reason: Constipation Diphenhydramine HCl (Benadryl) 25 mg IVPUSH Q6H PRN PRN Reason: Itching or Nausea Last Admin: 06/14/20 09:55 Dose: 25 mg Documented by: Docusate Sodium (Colace) 100 mg PO BID [facility] Last Admin: 06/15/20 22:03 Dose: 100 mg Documented by: Emollient Ointment (Lansinoh Hpa) 0 gm TOP ASDIRECTED PRN PRN Reason: Sore Nipples Last Admin: 06/15/20 18:23 Dose: 1 tube Documented by: Oxytocin/Sodium Chloride (Oxytocin 30 Unit/500 Ml-Ns) 30 unit in 500 mls @ 250 mls/hr IV TITRATE ARIANA Lactated Ringer's (Ringers, Lactated) 1,000 mls @ 500 mls/hr IV BOLUS ARIANA Lactated Ringer's (Ringers, Lactated) 1,000 mls @ 125 mls/hr IV ASDIRECTED ARIANA Last Admin: 06/14/20 11:50 Dose: 999 mls/hr Documented by: Tranexamic Acid 1,000 mg/ (Sodium Chloride) 110 mls @ 660 mls/hr IV ONETIME PRN PRN Reason: Bleeding Ibuprofen (Motrin) 800 mg PO Q8H PRN PRN Reason: mild pain or fever Last Admin: 06/16/20 05:38 Dose: 800 mg Documented by: Methylergonovine Maleate (Methergine) 0.2 mg IM ONETIME PRN PRN Reason: Excessive Vaginal Bleeding Misoprostol (Cytotec) 1,000 mcg RECTAL ONETIME PRN PRN Reason: excessive bleeding Ondansetron HCl (Zofran) 4 mg IVPUSH Q4H PRN PRN Reason: Nausea/Vomiting Oxycodone/Acetaminophen (Percocet 325-5 Mg) 1 tab PO Q4H PRN PRN Reason: Pain (moderate 4-6) Last Admin: 06/16/20 05:38 Dose: 1 tab Documented by: Oxycodone/Acetaminophen (Percocet 325-5 Mg) 2 tab PO Q4H PRN PRN Reason: Pain (moderate 4-6) Last Admin: 06/15/20 23:54 Dose: 2 tab Documented by: Oxytocin (Pitocin) 10 unit IM ASDIRECTED PRN PRN Reason: Excessive Vaginal Bleeding Sodium Chloride (Saline Flush) 10 ml FLUSH ASDIRECTED PRN PRN Reason: Keep Vein Open Sodium Chloride (Saline Flush) 2.5 ml FLUSH ASDIRECTED PRN PRN Reason: Keep Vein Open Sodium Chloride (Normal Saline) 10 ml IV ASDIRECTED PRN PRN Reason: IV Use Discontinued Medications Citric Acid/Sodium Citrate (Bicitra Solution) 30 ml PO ONETIME ONE Stop: 06/14/20 05:59 Last Admin: 06/15/20 01:42 Dose: Not Given Documented by: Ephedrine Sulfate (Emerphed) Confirm Administered Dose 50 mg .ROUTE .STK-MED ONE Stop: 06/14/20 11:58 Last Admin: 06/15/20 01:43 Dose: Not Given Documented by: Glycopyrrolate (Robinul) Confirm Administered Dose 0.2 mg .ROUTE .STK-MED ONE Stop: 06/14/20 08:59 Cefazolin Sodium/Dextrose 2 gm (/ Premix) 50 mls @ 100 mls/hr IV ONETIME ONE Stop: 06/14/20 06:27 Last Admin: 06/15/20 01:39 Dose: Not Given Documented by: Ketorolac Tromethamine (Toradol) Confirm Administered Dose 30 mg .ROUTE .STK-MED ONE Stop: 06/14/20 08:40 Ketorolac Tromethamine (Toradol) 30 mg IVPUSH Q6H ARIANA Stop: 06/15/20 09:16 Last Admin: 06/15/20 09:08 Dose: 30 mg Documented by: Morphine Sulfate (Duramorph Pf) Confirm Administered Dose 10 mg .ROUTE .STK-MED ONE Stop: 06/14/20 08:12 Octyl Cyanoacrylate (Dermabond Advance) Confirm Administered Dose 1 applic .ROUTE .STK-MED ONE Stop: 06/14/20 07:44 Last Admin: 06/15/20 01:42 Dose: Not Given Documented by: Octyl Cyanoacrylate (Dermabond Advance) Confirm Administered Dose 1 applic .ROUTE .STK-MED ONE Stop: 06/14/20 09:20 Last Admin: 06/15/20 01:42 Dose: Not Given Documented by: Ondansetron HCl (Zofran) Confirm Administered Dose 4 mg .ROUTE .STK-MED ONE Stop: 06/14/20 08:12 Oxytocin (Pitocin) Confirm Administered Dose 20 unit .ROUTE .STK-MED ONE Stop: 06/14/20 08:12 Oxytocin (Pitocin) Confirm Administered Dose 20 unit .ROUTE .STK-MED ONE Stop: 06/14/20 08:58 - Exam General: Reports: Alert, Oriented, Cooperative, No Acute Distress Lungs: Reports: Normal Respiratory Effort Cardiovascular: Reports: Regular Rate, Regular Rhythm GI/Abdominal Exam: Soft, Non-Tender (Female) Exam: Deferred Rectal (Female) Exam: Deferred Back Exam: Reports: Normal Inspection, Full Range of Motion Extremities: Normal Inspection, Normal Range of Motion, Non-Tender, No Pedal Edema, Normal Capillary Refill Skin: Reports: Warm, Dry, Intact Wound/Incisions: Reports: Healing Well Neurological: Reports: No New Focal Deficit, Normal Speech, Normal Tone Psy/Mental Status: Reports: Alert, Normal Affect, Normal Mood
[2020-06-16] MEDS: Docusate Sodium 100 MG Cap PO SCH (09:26)
[2020-06-16] MEDS: Lanolin 100% Cream 7 GM Tube TOP PRN (09:40)
== END 2020-06-16 15:06 | disposition home or self-care (01) | DRG 788 ==
LOC: MW.OB 05:09
PROVIDERS: ADMIT Obstetrics & Gynecology; ATTEND Obstetrics & Gynecology
PROC: 10D00Z1 Extraction of Products of Conception, Low, Open Approach (ICD-10-PCS; principal; 2020-06-14)
DX: O34.211 Maternal care for low transverse scar from previous cesarean delivery (principal); Z37.0 Single live birth; O99.62 Diseases of the digestive system complicating childbirth; K21.9 Gastro-esophageal reflux disease without esophagitis; O99.344 Other mental disorders complicating childbirth; F32.9 Major depressive disorder, single episode, unspecified; F41.9 Anxiety disorder, unspecified; O99.214 Obesity complicating childbirth; D64.9 Anemia, unspecified; O99.02 Anemia complicating childbirth; Z87.891 Personal history of nicotine dependence; Z3A.39 39 weeks gestation of pregnancy
CPT/HCPCS: 36415; 59025; 85014; 85018; 85027; 86592; 86850; 86900; 86901; A9270-GY; J1200; J1885; J2270; J2405; J2590; J3490; J7120

== ENCOUNTER 2020-10-01 22:52 | Emergency (ER) | payer SELFPAY ==
[2020-10-01] MEDS ORDERED: Morphine 4 MG/ML Syringe IM ONE (23:31)
[2020-10-01] MEDS ORDERED: Lactated Ringers 1,000 ML IV ONE (23:31)
[2020-10-01 23:59] LABS: BLOOD UREA NITROGEN,BUN 13 mg/dL (7.0-18.0); CARBON DIOXIDE,CO2 28.5 mmol/L (21.0-32.0); CHLORIDE,CL 103 mmol/L (98-107); GLUCOSE RANDOM 111 mg/dL (74-106); POTASSIUM,K 3.6 mmol/L (3.5-5.1); SODIUM,NA 141 mmol/L (136-145)
--- NOTE | 2020-10-02 00:20 | US ---
INDICATION: Right upper quadrant pain TECHNIQUE: Ultrasound abdomen limited. Sonographic images of the right upper quadrant were obtained using gant-scale and color Doppler images. COMPARISON: None FINDINGS: Liver: The liver parenchyma is normal in echotexture. Gallbladder: There is a non mobile, echogenic gallstone seen in the neck of the gallbladder measuring 12 mm. A sonographic Whalen`s sign was reported. The gallbladder wall is normal in appearance. No pericholecystic fluid is present. Common bile duct: 3 mm. Pancreas: The visualized portions of the pancreatic head and body are normal in appearance. Right Kidney: 11 cm. No hydronephrosis or ureterectasis is seen. Vascular: The visualized abdominal aorta and IVC are unremarkable. The visualized portal vein is patent with normal anterograde flow. IMPRESSION: 1. There is a nonmobile echogenic gallstone seen near the neck of the gallbladder with sonographic Whalen sign. Close clinical follow-up is recommended to exclude subsequent development of acute cholecystitis. Dictated by Karan Hinson MD @ 10/02/2020 12:18:45 AM Dictated by: Karan Hinson MD @ 10/02/2020 00:19:55 (Electronically Signed)
--- NOTE | 2020-10-02 00:28 | CR ---
INDICATION: Right chest pain TECHNIQUE: Chest radiograph 1 view right COMPARISON: None FINDINGS: Mediastinum: The mediastinum is normal in appearance. The heart silhouette is normal in size and morphology. Lung: Both lungs are unremarkable in appearance. No sign of pleural effusion seen. No pneumothorax is identified. Bone and Soft tissue: Unremarkable for age. IMPRESSION: 1. No acute cardiopulmonary disease is seen. Dictated by: Karan Hinson MD @ 10/02/2020 00:27:19 (Electronically Signed)
--- NOTE | 2020-10-02 00:37 | EDM.PDOC ---
ED HPI GENERAL MEDICAL PROBLEM - General Chief Complaint: Abdominal Pain Stated Complaint: STOMACK PAIN Time Seen by Provider: 10/01/20 22:57 - History of Present Illness INITIAL COMMENTS - FREE TEXT/NARRATIVE: CHIEF COMPLAINT(S): Abdominal pain HISTORY OF PRESENT ILLNESS: This is a 24-year-old woman without any past medical problems who comes to the emergency department with a chief complaint of abdominal pain. The patient states that she woke up this evening with severe right upper quadrant abdominal pain associated with nausea without any vomiting. She states that the pain is rated 8 out of 10. She denies any radiation of the pain except she is experiencing some right shoulder pain. She states that she has not tried anything for pain. She does not know what exacerbates it. She denies any fevers or chills. She denies any diarrhea or melena or hematochezia. She states that over the last 2 years she has been experiencing this similar pain. She states that last year it would occur every 3 to 6 months however it is becoming more frequently towards happening almost every week. She denies any chest pain or shortness of breath. She denies any injury to her abdomen. REVIEW OF SYSTEMS: Constitutional: Denies fever, chills. Eyes: Denies eye pain Ears, Nose, Mouth, & Throat: Denies earache Cardiovascular: Denies chest pain Respiratory: Denies shortness of breath Gastrointestinal: Positive for right upper quadrant abdominal pain with nausea. Denies vomiting, diarrhea, hematochezia, melena, hematemesis, bilious emesis Genitourinary: Denies hematuria, dysuria Skin:Denies a rash Neurological: Denies blurred vision Psychiatric: Denies depression PAST MEDICAL HISTORY: As per history of present illness and as reviewed below otherwise noncontributory. SURGICAL HISTORY: As per history of present illness and as reviewed below otherwise noncontributory. SOCIAL HISTORY: As per history of present illness and as reviewed below otherwise noncontributory. FAMILY HISTORY: As per history of present illness and as reviewed below otherwise noncontributory. EXAMINATION OF ORGAN SYSTEMS/BODY AREAS: Constitutional: Blood pressure was 149/120, heart rate 49, respiratory rate 18 with an oxygen saturation 9 9% on room air. Temperature 36.3 General: Overall well-appearing woman who is in no acute distress. Psychiatric: Appropriate mood and affect. Eyes: No scleral icterus or conjunctival erythema ENMT: Moist mucous membranes. No pharyngeal erythema Cardiovascular: Bradycardic but regular. No gallops, murmurs, or rubs. Bilateral upper extremity pulses symmetric and intact. No peripheral edema. No JVD. Respiratory: Lungs clear to auscultation bilaterally. No wheezes, rales, or rhonchi. Gastrointestinal: Soft, nondistended, severe tenderness to palpation in the right upper quadrant. Positive Whalen's. No rebound or guarding. Normal bowel sounds. Genitourinary: No suprapubic tenderness no CVA tenderness. 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: Normal range of motion. Skin: No lesions or abrasions. Neurological: Alert, GCS 15 MEDICAL DECISION MAKING AND COURSE IN THE ED WITH INTERPRETATION/REVIEW OF DIAGNOSTIC STUDIES: This is a 24-year-old woman without any significant past medical history who comes to the emergency department with severe right upper quadrant abdominal pain who is bradycardic. At this time I do suspect cholecystitis. Will obtain CBC, CMP, coags, and right upper quadrant ultrasound. Also obtain [id number] and Covid test. We will provide the patient with 4 mg of IV morphine and 1 L of lactated Ringer's bolus. Given the bradycardia we did obtain an EKG which did not reveal any acute signs of ischemia. I did review the patient's chart and in her chart it seems like her heart rate ranges from 51 up to 100. The patient is young and denying any symptoms therefore I do believe this could be around her normal. We will monitor and also obtain a chest x-ray. Laboratory: CBC is unremarkable. Coags are within normal limits. CMP reveals mild hyperglycemia at 111 and a mild elevation in ALT at 69 otherwise unremarkable. hCG is negative. Covid is negative. The radiological images were viewed by myself along with reading the report from the radiologist. Right upper quadrant ultrasound reveals no evidence of gallbladder wall thickening or CBD dilation. There is a nonmobile echogenic gallstones near the gallbladder neck. Chest x-ray does not reveal any acute cardiopulmonary process. After imaging given that the patient is experiencing symptomatic cholelithiasis without evidence of cholecystitis I did contact Dr. Gray who recommended that if the patient's pain is improved, she does not have a white count, is not febrile that she would be able to follow-up in clinic. I discussed the results with the patient. At this time of my reevaluation her pain had significantly improved and her heart rate return to the 58-60 range. At this time I did discuss with her that she be stable for discharge. I discussed with her that she should call tomorrow morning and make an appointment with general surgery for elective removal of her gallbladder. I discussed that I be providing her with [place] to be used as needed only for severe pain. I discussed with her that if her pain worsen she develops fever or vomiting she need to return to the emergency department. She was amenable to discharge at this time and had no further questions. In addition I do believe her bradycardia is likely secondary to being young and healthy however I did discuss with her she should follow-up with her primary care physician for continued monitoring. She is to return to the emergency department if she has any syncope, dizziness, or chest pain. She did express understanding. DISPOSITION: The patient was discharged home in stable condition. The patient will follow up with general surgery this week CONDITION: Fair PROCEDURES: None FINAL IMPRESSION(S)/DIAGNOSES: 1. Acute symptomatic cholelithiasis 2. Bradycardia Holland Lanier M.D. RUQ Pain Score (Numeric/FACES): 8 - Related Data Allergies Allergy/AdvReac Type Severity Reaction Status Date / Time No Known Allergies Allergy Verified 10/01/20 23:37 Home Meds: Home Meds Acetaminophen/HYDROcodone [[place] 325-5 MG] 1 tab PO Q6H PRN #6 tablet 10/02/20 [Rx] Past Medical History - Past Health History Medical/Surgical History: Denies Medical/Surgical History HEENT History: Reports: None Cardiovascular History: Reports: None Respiratory History: Reports: None Gastrointestinal History: Reports: GERD Other Gastrointestinal History: heartburn during Genitourinary History: Reports: Renal Calculus, UTI, Recurrent SENIOR BENEFITS SPECIALIST History: Reports: 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 History: Reports: None Neurological History: Reports: None Psychiatric History: Reports: Anxiety, Depression Endocrine/Metabolic History: Reports: Obesity/BMI 30+ Hematologic History: Reports: Anemia Immunologic History: Reports: None Oncologic (Cancer) History: Reports: None Dermatologic History: Reports: Other (See Below) Other Dermatologic History: Maryellen disease - Infectious Disease History Infectious Disease History: Reports: Chicken Pox - Past Surgical History Head Surgeries/Procedures: Reports: None HEENT Surgical History: Reports: None Cardiovascular Surgical History: Reports: None Respiratory Surgical History: Reports: None GI Surgical History: Reports: None Female Surgical History: Reports: Section Endocrine Surgical History: Reports: None Neurological Surgical History: Reports: None 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 Surgical History: Reports: None Oncologic Surgical History: Reports: None Dermatological Surgical History: Reports: None Social & Family History - Family History Family Medical History: No Pertinent Family History Cardiac: Reports: Heart Failure OBGYN: Reports: Oncologic: Reports: Lung - Caffeine Use Caffeine Use: Reports: None - Recreational Drug Use Recreational Drug Use: Yes Recreational 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 Drug Use Frequency: Daily ED ROS GENERAL - Review of Systems Review Of Systems: See Below ED EXAM, GI/ABD - Physical Exam Exam: See Below Course - Vital Signs Last Recorded V/S: Last Vital Signs Temp 36.7 C 10/02/20 01:03 Pulse 57 L 10/02/20 01:03 Resp 18 10/02/20 01:03 BP 102/47 L 10/02/20 01:03 Pulse Ox 98 10/02/20 01:03 - Orders/Labs/Meds Labs: Laboratory Tests 10/01/20 10/01/20 10/01/20 Range/Units 23:27 23:27 23:27 WBC 8.63 (4.0-11.0) K/uL RBC 4.41 (4.30-5.90) M/uL Hgb 13.1 (12.0-16.0) g/dL Hct 40.1 (36.0-46.0) % MCV 90.9 (80.0-98.0) fL MCH 29.7 (27.0-32.0) pg MCHC 32.7 (31.0-37.0) g/dL RDW Std Deviation 43.5 (28.0-62.0) fl RDW Coeff of Jamey 13 (11.0-15.0) % Plt Count 240 (150-400) K/uL MPV 11.30 (7.40-12.00) fL Neut % (Auto) 56.2 (48.0-80.0) % Lymph % (Auto) 34.0 (16.0-40.0) % [place] % (Auto) 6.4 (0.0-15.0) % Eos % (Auto) 2.9 (0.0-7.0) % Baso % (Auto) 0.5 (0.0-1.5) % Neut # (Auto) 4.9 (1.4-5.7) K/uL Lymph # (Auto) 2.9 H (0.6-2.4) K/uL [place] # (Auto) 0.6 (0.0-0.8) K/uL Eos # (Auto) 0.3 (0.0-0.7) K/uL Baso # (Auto) 0.0 (0.0-0.1) K/uL Nucleated RBC % 0.0 /100WBC Nucleated RBCs # 0 K/uL INR 1.12 Sodium (136-145) mmol/L Potassium (3.5-5.1) mmol/L Chloride (98-107) mmol/L Carbon Dioxide (21.0-32.0) mmol/L BUN (7.0-18.0) mg/dL Creatinine (0.6-1.0) mg/dL Est Cr Clr Drug Dosing mL/min Estimated GFR (MDRD) ml/min Glucose (74-106) mg/dL Calcium (8.5-10.1) mg/dL Total Bilirubin (0.2-1.0) mg/dL AST (15-37) IU/L ALT (14-63) IU/L Alkaline Phosphatase (46-116) U/L Total Protein (6.4-8.2) g/dL Albumin (3.4-5.0) g/dL Globulin (2.6-4.0) g/dL Albumin/Globulin Ratio (0.9-1.6) Urine HCG, Qual NEGATIVE (NEGATIVE) SARS-CoV-2 RNA (COURT) (NEGATIVE) Blood Type Antibody Screen 10/01/20 10/02/20 10/02/20 Range/Units 23:27 00:01 00:05 WBC (4.0-11.0) K/uL RBC (4.30-5.90) M/uL Hgb (12.0-16.0) g/dL Hct (36.0-46.0) % MCV (80.0-98.0) fL MCH (27.0-32.0) pg MCHC (31.0-37.0) g/dL RDW Std Deviation (28.0-62.0) fl RDW Coeff of Jamey (11.0-15.0) % Plt Count (150-400) K/uL MPV (7.40-12.00) fL Neut % (Auto) (48.0-80.0) % Lymph % (Auto) (16.0-40.0) % [place] % (Auto) (0.0-15.0) % Eos % (Auto) (0.0-7.0) % Baso % (Auto) (0.0-1.5) % Neut # (Auto) (1.4-5.7) K/uL Lymph # (Auto) (0.6-2.4) K/uL [place] # (Auto) (0.0-0.8) K/uL Eos # (Auto) (0.0-0.7) K/uL Baso # (Auto) (0.0-0.1) K/uL Nucleated RBC % /100WBC Nucleated RBCs # K/uL INR Sodium 141 (136-145) mmol/L Potassium 3.6 (3.5-5.1) mmol/L Chloride 103 (98-107) mmol/L Carbon Dioxide 28.5 (21.0-32.0) mmol/L BUN 13 (7.0-18.0) mg/dL Creatinine 0.9 (0.6-1.0) mg/dL Est Cr Clr Drug Dosing 84.67 mL/min Estimated GFR (MDRD) > 60.0 ml/min Glucose 111 H (74-106) mg/dL Calcium 9.0 (8.5-10.1) mg/dL Total Bilirubin 0.6 (0.2-1.0) mg/dL AST 30 (15-37) IU/L ALT 69 H (14-63) IU/L Alkaline Phosphatase 61 (46-116) U/L Total Protein 7.2 (6.4-8.2) g/dL Albumin 3.8 (3.4-5.0) g/dL Globulin 3.4 (2.6-4.0) g/dL Albumin/Globulin Ratio 1.1 (0.9-1.6) Urine HCG, Qual (NEGATIVE) SARS-CoV-2 RNA (COURT) NEGATIVE (NEGATIVE) Blood Type A POSITIVE Antibody Screen NEGATIVE Meds: Medications Discontinued Medications Generic Name Dose Route Start Last Admin Trade Name Freq PRN Reason Stop Dose Admin Lactated Ringer's 1,000 mls @ 999 mls/hr 10/01/20 23:31 10/01/20 23:36 Ringers, Lactated IV 10/02/20 00:31 999 mls/hr .BOLUS ONE Administration Morphine Sulfate 4 mg 10/01/20 23:31 10/01/20 23:36 Morphine IM 10/01/20 23:32 4 mg ONETIME ONE Administration Departure - Departure Time of Disposition: 00:35 Disposition: Home, Self-Care 01 Condition: Fair Clinical Impression: Symptomatic cholelithiasis, Bradycardia - Discharge Information *PRESCRIPTION DRUG MONITORING PROGRAM REVIEWED*: No *COPY OF PRESCRIPTION DRUG MONITORING REPORT IN PATIENT DEBRA: No Prescriptions: Acetaminophen/HYDROcodone [[place] 325-5 MG] 1 tab PO Q6H PRN #6 tablet PRN Reason: Abdominal Pain Instructions: Bradycardia, Adult, Cholelithiasis, [id number] Referrals: PCP,None [Primary Care Provider] - Nia Gray MD [Physician] - Forms: ED Department Discharge Additional Instructions: Your evaluated today on an emergent basis. At this time there is a stone in your gallbladder which I believe is causing your symptoms. I am getting prescribed you [place] to be used as needed for pain that is severe. If the pain persists, you develop fever, or worsens you need to return to the emergency department. In addition your heart rate was low however given that you are asymptomatic it is important that you follow-up with your primary care physician. This can be common in young individuals. [facility] - General Surgery (Dr. Gray) Professional [address], [address] [place] [address] The patient is informed of any results of their evaluation and diagnostic workup and all questions are answered. They are given discharge instructions and return precautions. The patient is stable for discharge. The patient states they understand and agree with the plan and that they will return if their symptoms get worse or if they have any new concerns. The following information is given to patients seen in the emergency department who are being discharged to home. This information is to outline your options for follow-up care. We provide all patients seen in our emergency department with a follow-up referral. The need for follow-up, as well as the timing and circumstances, are variable depending upon the specifics of your emergency department visit. If you don't have a primary care physician on staff, we will provide you with a referral. We always advise you to contact your personal physician following an emergency department visit to inform them of the circumstance of the visit and for follow-up with them and/or the need for any referrals to a consulting specialist. The emergency department will also refer you to a specialist when appropriate. This referral assures that you have the opportunity for follow-up care with a specialist. All of these measure are taken in an effort to provide you with optimal care, which includes your follow-up. Under all circumstances we always encourage you to contact your private physician who remains a resource for coordinating your care. When calling for follow-up care, please make the office aware that this follow-up is from your recent emergency room visit. If for any reason you are refused follow-up, please contact the [facility] Emergency Department at and asked to speak to the emergency department charge nurse. Sepsis Event Note (ED) - Evaluation Sepsis Screening Result: No Definite Risk - Focused Exam Vital Signs: Vital Signs Temp Pulse Resp BP Pulse Ox 10/02/20 01:03 36.7 C 57 L 18 102/47 L 98 10/01/20 23:30 36.3 C 49 L 18 149/120 H 99
--- NOTE | 2020-10-02 03:11 | PCM.SN.2 ---
#1 Interpretation EKG Date: 10/01/20 Time: 23:28 Rhythm: NSR Rate (Beats/Min): 42 [place]: Normal P-Wave: Present QRS: Normal ST-T: Normal QT: Normal Comparison: NA - No Prior EKG EKG Interpretation Comments: Sinus Bradycardia
== END 2020-10-02 01:03 | disposition home or self-care (01) ==
LOC: MW.ED 22:52
DX: K80.20 Calculus of gallbladder without cholecystitis without obstruction (principal); R00.1 Bradycardia, unspecified; E66.9 Obesity, unspecified; Z68.31 Body mass index [BMI] 31.0-31.9, adult; Z20.822 Contact with and (suspected) exposure to COVID-19
CPT/HCPCS: 36415; 71045; 76705; 80053; 81025; 85025; 85610; 86850; 86900; 86901; 87635; 93005; 96372; 99284; J2270; J7120; 93010; U0002

== ENCOUNTER 2021-03-05 21:36 | Emergency (ER) | payer SELFPAY ==
[2021-03-05 22:48] LABS: BLOOD UREA NITROGEN,BUN 11 mg/dL (7.0-18.0); CARBON DIOXIDE,CO2 25.8 mmol/L (21.0-32.0); CHLORIDE,CL 101 mmol/L (98-107); GLUCOSE RANDOM 94 mg/dL (74-106); POTASSIUM,K 3.6 mmol/L (3.5-5.1); SODIUM,NA 137 mmol/L (136-145)
[2021-03-05] MEDS ORDERED: Lactated Ringers 1,000 ML IV ONE (23:24)
[2021-03-05] MEDS ORDERED: Ketorolac 15 MG/ML SDV IVPUSH ONE (23:29)
[2021-03-05] MEDS ORDERED: Ondansetron 4 MG/2 ML SDV IVPUSH ONE (23:29)
--- NOTE | 2021-03-06 00:05 | CT ---
INDICATION: Right flank pain. Evaluate for nephrolithiasis. CT ABDOMEN AND PELVIS WITHOUT CONTRAST TECHNIQUE: Multidetector CT imaging was performed through the abdomen and pelvis without intravenous contrast administration. Coronal and sagittal reconstructions were generated. COMPARISON: None. FINDINGS: Lower chest: Lung bases are clear. Liver: Within normal limits. Gallbladder and bile ducts: 9 millimeter calcified gallstone within a partially contracted gallbladder, without findings suggestive of cholecystitis. No biliary dilation identified. Pancreas: Unremarkable. Spleen: Normal. Adrenals: No nodules or masses. Kidneys, ureters, and urinary bladder: No urinary tract stones identified. Slight fullness of the right renal pelvis with thickening of the right renal pelvis redding and adjacent fat stranding. Fat stranding along the course of the right ureter. Diffuse wall thickening of the urinary bladder with mild perivesical fat stranding, suspicious for cystitis. Gastrointestinal tract: Normal caliber bowel without wall thickening. The appendix is normal. 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 Unremarkable abdominal aorta. Peritoneum: Small amount of free fluid in the low pelvis. No loculated collection suggestive of abscess. No free air identified. Lymph nodes: No pathologically enlarged nodes identified. Reproductive organs: No pelvic masses. Bones: Normal for age. IMPRESSION: 1. No urinary tract stones identified. 2. Slight fullness of the right renal pelvis with wall thickening and mild peripelvic fat stranding, along with fat stranding along the right ureter. Ascending infection (ureteritis and pyelitis or pyelonephritis) is favored. Alternatively, these findings could reflect recent passage of a stone through the right ureter. Clinical correlation is recommended. 3. Wall thickening of the urinary bladder and perivesical fat stranding, suspicious for cystitis. Correlation with urinalysis is recommended. REGINO PELLETIER MD [employer] Dictated by Richy Pelletier MD @ 03/06/2021 12:03:21 AM Dictated by: Richy Pelletier MD @ 03/06/2021 00:03:36 (Electronically Signed)
[2021-03-06] MEDS ORDERED: Sulfamethoxazole/Trimethoprim 800-160 MG Tab PO ONE (00:16)
--- NOTE | 2021-03-06 00:41 | EDM.PDOC ---
ED HPI GENERAL MEDICAL PROBLEM - General Chief Complaint: Genitourinary Problem Stated Complaint: POSSIBLE KIDNEY INFECTION Time Seen by Provider: 03/05/21 21:56 - History of Present Illness INITIAL COMMENTS - FREE TEXT/NARRATIVE: CHIEF COMPLAINT(S): "I think I have a urinary tract infection or kidney stone." HISTORY OF PRESENT ILLNESS: This is a 25-year-old woman with without any significant past medical history who comes to the emergency department with a chief complaint of "I think I have a urinary tract infection or kidney stone." The patient states that for approximately 2 days now she has been experiencing increased pressure in the suprapubic region and back pain both of which she rates as 8 out of 10 and crampy and intermittent. She states that she does have some burning with urination and she did initially have some blood in her urine however that has cleared up. She states that it hurts to stand. She has not yet taken anything for the pain however she did try hibiscus tea which did seem to help. She denies any fevers, chills, abdominal pain, nausea or vomiting. She denies any vaginal bleeding or vaginal discharge. She denies any history of kidney stones. She denies any family history of kidney stones. She denies any history of pyelonephritis. REVIEW OF SYSTEMS: Constitutional: Denies fever, chills. Eyes: Denies eye pain Ears, Nose, Mouth, & Throat: Denies earache Cardiovascular: Denies chest pain Respiratory: Denies shortness of breath Gastrointestinal: Denies Nausea, vomiting, diarrhea, hematochezia. Genitourinary: Positive for suprapubic tenderness, hematuria, dysuria, increased pressure in the bladder, flank tenderness right greater than left Skin:Denies a rash MSK: Denies joint pain Neurological: Denies headache or blurred vision Psychiatric: Denies depression PAST MEDICAL HISTORY: As per history of present illness and as reviewed below otherwise noncontributory. SURGICAL HISTORY: As per history of present illness and as reviewed below otherwise noncontributory. SOCIAL HISTORY: As per history of present illness and as reviewed below otherwise noncontributory. FAMILY HISTORY: As per history of present illness and as reviewed below otherwise noncontributory. EXAMINATION OF ORGAN SYSTEMS/BODY AREAS: Constitutional: Blood pressure is 117/57, heart rate 68, respiratory rate 18 with an oxygen saturation of 97% on room air. Temperature 35.6 General: Overall well-appearing woman who is in no acute distress Psychiatric: Appropriate mood and affect. Eyes: No scleral icterus or conjunctival erythema ENMT: Moist mucous membranes. No pharyngeal erythema Cardiovascular: Regular, rate, and rhythm. No gallops, murmurs, or rubs. Bilateral upper extremity pulses symmetric and intact. No peripheral edema. No JVD. Respiratory: Lungs clear to auscultation bilaterally. No wheezes, rales, or rhonchi. Gastrointestinal: Soft, non-tender, non-distended. Normoactive bowel sounds Genitourinary: Suprapubic tenderness to palpation, right mild CVA tenderness. No left CVA tenderness. 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: Normal range of motion. Skin: No lesions or abrasions. Neurological: Alert, GCS 15 MEDICAL DECISION MAKING AND COURSE IN THE ED WITH INTERPRETATION/REVIEW OF DIAGNOSTIC STUDIES: This is a 25-year-old woman without any significant past medical history who comes to the emergency department with 2 days of suprapubic tenderness with associated with dysuria, hematuria and right greater than left flank pain who has normal vital signs and is afebrile. At this time I did discuss with the patient that I would like to provide her with some IV fluids some Toradol for pain relief and some Zofran for nausea. I discussed that I would like to obtain a laboratory analysis of CBC, CMP, urinalysis and hCG. In addition I would like to obtain a CT abdomen pelvis without contrast to evaluate for kidney stone versus pyelonephritis. She was amenable to this plan. Laboratory: CBC reveals a mild leukocytosis with no left shift. WBC count was 11.78. CMP is unremarkable except for mild elevated bilirubin at 1.4. hCG was negative. Urinalysis was a clean catch and was small for leukocyte esterase, positive for nitrites, and large for blood. Interpretation: Positive The radiological images were viewed by myself along with reading the report from the radiologist. CT abdomen pelvis with IV contrast reveals slight fullness of the right renal pelvis with wall thickening and mild peripelvic fat stranding along with fat stranding along the right ureter. A sending infection pyelitis or pyelonephritis is favored. This could represent passage of a recent stone. There is wall thickening of the urinary bladder and perivesical stranding suspicion for cystitis. I did discuss the results with the patient. I did discuss with her that is providing her with an antibiotic. I did discuss with her that I do believe this is pyelonephritis. I discussed the prolonged course of antibiotics. She is to complete all the antibiotic course and she was given strict return precautions. The patient was amenable to discharge at this time and had no further questions DISPOSITION: The patient was discharged home in stable condition. The patient will follow up with primary care physician in 3 to 5 days CONDITION: Fair PROCEDURES: None FINAL IMPRESSION(S)/DIAGNOSES: 1. Acute pyelonephritis 2. Acute cystitis Holland Lanier M.D. Bilateral Upper Flank Pain Score (Numeric/FACES): 6 - Related Data Allergies Allergy/AdvReac Type Severity Reaction Status Date / Time No Known Allergies Allergy Verified 03/05/21 21:52 Home Meds: Home Meds Sulfamethoxazole/Trimethoprim [Bactrim Ds Tablet] 1 each PO BID 14 Days #27 tablet 03/06/21 [Rx] Past Medical History - Past Health History Medical/Surgical History: Denies Medical/Surgical History HEENT History: Reports: None Cardiovascular History: Reports: None Respiratory History: Reports: None Gastrointestinal History: Reports: GERD Other Gastrointestinal History: heartburn during Genitourinary History: Reports: Renal Calculus, UTI, Recurrent [employer] History: Reports: 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 History: Reports: None Neurological History: Reports: None Psychiatric History: Reports: Anxiety, Depression Endocrine/Metabolic History: Reports: Obesity/BMI 30+ Hematologic History: Reports: Anemia Immunologic History: Reports: None Oncologic (Cancer) History: Reports: None Dermatologic History: Reports: Other (See Below) Other Dermatologic History: Maryellen disease - Infectious Disease History Infectious Disease History: Reports: Chicken Pox - Past Surgical History Head Surgeries/Procedures: Reports: None HEENT Surgical History: Reports: None Cardiovascular Surgical History: Reports: None Respiratory Surgical History: Reports: None GI Surgical History: Reports: None Female Surgical History: Reports: Section Endocrine Surgical History: Reports: None Neurological Surgical History: Reports: None 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 Surgical History: Reports: None Oncologic Surgical History: Reports: None Dermatological Surgical History: Reports: None Social & Family History - Family History Family Medical History: No Pertinent Family History Cardiac: Reports: Heart Failure OBGYN: Reports: Oncologic: Reports: Lung - Tobacco Use Tobacco Use Status *Q: Never Tobacco User Second Hand Smoke Exposure: No - Caffeine Use Caffeine Use: Reports: None - Recreational Drug Use Recreational Drug Use: No ED ROS GENERAL - Review of Systems Review Of Systems: See Below ED EXAM, GENERAL - Physical Exam Exam: See Below Course - Vital Signs Last Recorded V/S: Last Vital Signs Temp 37.4 C 03/05/21 22:01 Pulse 68 03/05/21 21:48 Resp 18 03/05/21 21:48 BP 117/57 L 03/05/21 21:48 Pulse Ox 97 03/05/21 21:48 - Orders/Labs/Meds Orders: Active Orders 24 hr Category Date Time Status CULTURE URINE [MREF] Stat Lab 03/05/21 21:48 Received Labs: Laboratory Tests 03/05/21 03/05/21 03/05/21 Range/Units 21:48 21:48 21:48 WBC 11.78 H (4.0-11.0) K/uL RBC 4.62 (4.30-5.90) M/uL Hgb 13.7 (12.0-16.0) g/dL Hct 40.6 (36.0-46.0) % MCV 87.9 (80.0-98.0) fL MCH 29.7 (27.0-32.0) pg MCHC 33.7 (31.0-37.0) g/dL RDW Std Deviation 46.2 (28.0-62.0) fl RDW Coeff of Jamey 14 (11.0-15.0) % Plt Count 204 (150-400) K/uL MPV 11.90 (7.40-12.00) fL Neut % (Auto) 71.9 (48.0-80.0) % Lymph % (Auto) 18.4 (16.0-40.0) % [place] % (Auto) 8.6 (0.0-15.0) % Eos % (Auto) 0.8 (0.0-7.0) % Baso % (Auto) 0.3 (0.0-1.5) % Neut # (Auto) 8.5 H (1.4-5.7) K/uL Lymph # (Auto) 2.2 (0.6-2.4) K/uL [place] # (Auto) 1.0 H (0.0-0.8) K/uL Eos # (Auto) 0.1 (0.0-0.7) K/uL Baso # (Auto) 0.0 (0.0-0.1) K/uL Nucleated RBC % 0.0 /100WBC Nucleated RBCs # 0 K/uL Sodium (136-145) mmol/L Potassium (3.5-5.1) mmol/L Chloride (98-107) mmol/L Carbon Dioxide (21.0-32.0) mmol/L BUN (7.0-18.0) mg/dL Creatinine (0.6-1.0) mg/dL Est Cr Clr Drug Dosing mL/min Estimated GFR (MDRD) ml/min Glucose (74-106) mg/dL Calcium (8.5-10.1) mg/dL Total Bilirubin (0.2-1.0) mg/dL AST (15-37) IU/L ALT (14-63) IU/L Alkaline Phosphatase (46-116) U/L Total Protein (6.4-8.2) g/dL Albumin (3.4-5.0) g/dL Globulin (2.6-4.0) g/dL Albumin/Globulin Ratio (0.9-1.6) Urine Color DARK YELLOW Urine Appearance CLOUDY Urine pH 6.0 (5.0-8.0) Ur Specific [place] 1.025 (1.001-1.035) Urine Protein 100 H (NEGATIVE) mg/dL Urine Glucose (UA) NEGATIVE (NEGATIVE) mg/dL Urine Ketones NEGATIVE (NEGATIVE) mg/dL Urine Occult Blood LARGE H (NEGATIVE) Urine Nitrite POSITIVE H (NEGATIVE) Urine Bilirubin NEGATIVE (NEGATIVE) Urine Urobilinogen 0.2 (<2.0) EU/dL Ur Leukocyte Esterase SMALL H (NEGATIVE) Urine RBC 110-120 (0-2/HPF) Urine WBC 55-60 (0-5/HPF) Ur Epithelial Cells FEW (NONE-FEW) Urine Bacteria FEW (NEGATIVE) Urine HCG, Qual NEGATIVE (NEGATIVE) 03/05/21 Range/Units 22:21 WBC (4.0-11.0) K/uL RBC (4.30-5.90) M/uL Hgb (12.0-16.0) g/dL Hct (36.0-46.0) % MCV (80.0-98.0) fL MCH (27.0-32.0) pg MCHC (31.0-37.0) g/dL RDW Std Deviation (28.0-62.0) fl RDW Coeff of [place]ame[place] (11.0-15.0) % Plt Count (150-400) K/uL MPV (7.40-12.00) fL Neut % (Auto) (48.0-80.0) % Lymph % (Auto) (16.0-40.0) % [place] % (Auto) (0.0-15.0) % Eos % (Auto) (0.0-7.0) % Baso % (Auto) (0.0-1.5) % Neut # (Auto) (1.4-5.7) K/uL Lymph # (Auto) (0.6-2.4) K/uL [place] # (Auto) (0.0-0.8) K/uL Eos # (Auto) (0.0-0.7) K/uL Baso # (Auto) (0.0-0.1) K/uL Nucleated RBC % /100WBC Nucleated RBCs # K/uL Sodium 137 (136-145) mmol/L Potassium 3.6 (3.5-5.1) mmol/L Chloride 101 (98-107) mmol/L Carbon Dioxide 25.8 (21.0-32.0) mmol/L BUN 11 (7.0-18.0) mg/dL Creatinine 0.8 (0.6-1.0) mg/dL Est Cr Clr Drug Dosing 82.53 mL/min Estimated GFR (MDRD) > 60.0 ml/min Glucose 94 (74-106) mg/dL Calcium 8.8 (8.5-10.1) mg/dL Total Bilirubin 1.4 H (0.2-1.0) mg/dL AST 18 (15-37) IU/L ALT 27 (14-63) IU/L Alkaline Phosphatase 63 (46-116) U/L Total Protein 6.8 (6.4-8.2) g/dL Albumin 3.5 (3.4-5.0) g/dL Globulin 3.3 (2.6-4.0) g/dL Albumin/Globulin Ratio 1.1 (0.9-1.6) Urine Color Urine Appearance Urine pH (5.0-8.0) Ur Specific [place] (1.001-1.035) Urine Protein (NEGATIVE) mg/dL Urine Glucose (UA) (NEGATIVE) mg/dL Urine Ketones (NEGATIVE) mg/dL Urine Occult Blood (NEGATIVE) Urine Nitrite (NEGATIVE) Urine Bilirubin (NEGATIVE) Urine Urobilinogen (<2.0) EU/dL Ur Leukocyte Esterase (NEGATIVE) Urine RBC (0-2/HPF) Urine WBC (0-5/HPF) Ur Epithelial Cells (NONE-FEW) Urine Bacteria (NEGATIVE) Urine HCG, Qual (NEGATIVE) Meds: Medications Discontinued Medications Generic Name Dose Route Start Last Admin Trade Name Freq PRN Reason Stop Dose Admin Lactated Ringer's 1,000 mls @ 999 mls/hr 03/05/21 23:24 03/05/21 23:46 Ringers, Lactated IV 03/06/21 00:24 999 mls/hr .BOLUS ONE Administration Ketorolac Tromethamine 15 mg 03/05/21 23:29 03/05/21 23:47 Ketorolac 15 Mg/Ml Sdv IVPUSH 03/05/21 23:30 15 mg ONETIME ONE Administration Ondansetron HCl 4 mg 03/05/21 23:29 03/05/21 23:47 Ondansetron 4 Mg/2 Ml Sdv IVPUSH 03/05/21 23:30 4 mg ONETIME ONE Administration Trimethoprim/Sulfamethoxazole 1 tab 03/06/21 00:16 03/06/21 00:59 Sulfamethoxazole/Trimethoprim 800-160 Mg Tab PO 03/06/21 00:17 1 tab ONETIME ONE Administration Departure - Departure Time of Disposition: 00:41 Disposition: Home, Self-Care 01 Condition: Fair Clinical Impression: Pyelonephritis - Discharge Information *PRESCRIPTION DRUG MONITORING PROGRAM REVIEWED*: No *COPY OF PRESCRIPTION DRUG MONITORING REPORT IN PATIENT DEBRA: No Prescriptions: Sulfamethoxazole/Trimethoprim [Bactrim Ds Tablet] 1 each PO BID 14 Days #27 tablet Instructions: Pyelonephritis, Adult, [id number] Referrals: PCP,None [Primary Care Provider] - Forms: ED Department Discharge Additional Instructions: You evaluate today on an emergent basis. At this time you do have a kidney and bladder infection. I recommend taking Bactrim twice a day for the next 14 days. It is important that you follow-up with your primary care physician in 3 to 5 days. If you have any fever, worsening back pain, vomiting I would like you to return to the emergency department. Please use Tylenol and Motrin for pain relief. [facility] - Primary Care [address] [place] [id number] [facility] [address] [place] [id number] The patient is informed of any results of their evaluation and diagnostic workup and all questions are answered. They are given discharge instructions and return precautions. The patient is stable for discharge. The patient states they understand and agree with the plan and that they will return if their symptoms get worse or if they have any new concerns. The following information is given to patients seen in the emergency department who are being discharged to home. This information is to outline your options for follow-up care. We provide all patients seen in our emergency department with a follow-up referral. The need for follow-up, as well as the timing and circumstances, are variable depending upon the specifics of your emergency department visit. If you don't have a primary care physician on staff, we will provide you with a referral. We always advise you to contact your personal physician following an emergency department visit to inform them of the circumstance of the visit and for follow-up with them and/or the need for any referrals to a consulting specialist. The emergency department will also refer you to a specialist when appropriate. This referral assures that you have the opportunity for follow-up care with a specialist. All of these measure are taken in an effort to provide you with optimal care, which includes your follow-up. Under all circumstances we always encourage you to contact your private physician who remains a resource for coordinating your care. When calling for follow-up care, please make the office aware that this follow-up is from your recent emergency room visit. If for any reason you are refused follow-up, please contact the [facility] Emergency Department at and asked to speak to the emergency department charge nurse. Sepsis Event Note (ED) - Evaluation Sepsis Screening Result: No Definite Risk - My Orders Last 24 Hours: My Active Orders 03/05/21 21:48 CULTURE URINE [MREF] Stat - Assessment/Plan Last 24 Hours: My Active Orders 03/05/21 21:48 CULTURE URINE [MREF] Stat
== END 2021-03-06 01:05 | disposition home or self-care (01) ==
LOC: MW.ED 21:36
DX: N30.01 Acute cystitis with hematuria (principal); N10 Acute pyelonephritis; E66.9 Obesity, unspecified; Z68.33 Body mass index [BMI] 33.0-33.9, adult
CPT/HCPCS: 36415; 74176; 80053; 81001; 81025; 85025; 87086; 87088; 87186; 96374; 96375; 99284; A9270; J1885; J2405; J7120